=== PATIENT | female | born 1945 | race African-American/Black ===

== ENCOUNTER → 2017-01-30 | Outpatient (CLI) | payer MEDICARE, OTHER ==
[~2017-01-30] MED LIST: ASPI325T PO; CALC0.5C6 PO; CARD4TAB2 PO; CARV25TA PO; CLOP75 PO; D32000TA PO; IMDU30TA PO; LANS15CA PO; LANTUS2P SQ; LASI20TA PO; LOSA50TA PO; NITR0.4S SL; NOVOLOGP2 SQ; POTA-243 PO; PRAV80 PO; VITA100020 SL
[2017-01-30 07:37] LABS: HEMATOCRIT 30.9 % (35.0-46.0); MEAN CELL VOLUME 89.3 FL (80.0-100.0); MEAN CORPUSCULAR HEMOGLOBIN 28.5 PG (27.0-34.0); MEAN CORPUSCULAR HGB CONC 31.9 % (32.0-36.0); PLATELET COUNT 174 TH/MM3 (150-450); RED BLOOD COUNT 3.46 MIL/MM3 (4.00-5.30); RED CELL DISTRIBUTION WIDTH 14.1 % (11.6-17.2); REVIEW FLAG FINAL; WHITE BLOOD COUNT 4.7 TH/MM3 (4.0-11.0)
[2017-01-30 08:11] LABS: ALT (GPT) 12 U/L (10-53); ANION GAP 10 MEQ/L (5-15); AST (GOT) 14 U/L (15-37); BICARBONATE 22.9 MEQ/L (21.0-32.0); BLOOD UREA NITROGEN 38 MG/DL (7-18); CHLORIDE 107 MEQ/L (98-107); GLOMERULAR FILTRATION RATE 23 ML/MIN (>89); GLUCOSE,FASTING 215 MG/DL (74-99); POTASSIUM 4.2 MEQ/L (3.5-5.1); SODIUM (NA) 140 MEQ/L (136-145)
[2017-01-30 08:31] LABS: ALKALINE PHOSPHATASE 49 U/L (45-117); LDL CHOLESTEROL 103 MG/DL (0-99); TOTAL BILIRUBIN ADULT 0.3 MG/DL (0.2-1.0)
[2017-01-30 10:45] LABS: HEMOGLOBIN A1a 1.3 %; HEMOGLOBIN A1b 1.2 %; HEMOGLOBIN Ao 75.9 %; HEMOGLOBIN LA1C 3.1 %; HEMOGLOBIN P3 5.8 %
== END ==
LOC: CLAB 07:05
PROVIDERS: ATTEND Nurse Practitioner Acute Care
DX: I12.9 Hypertensive chronic kidney disease with stage 1 through stage 4 chronic kidney disease, or unspecified chronic kidney disease (principal); N18.4 Chronic kidney disease, stage 4 (severe); R80.1 Persistent proteinuria, unspecified; E11.610 Type 2 diabetes mellitus with diabetic neuropathic arthropathy; E78.4 Other hyperlipidemia
CPT/HCPCS: 36415; 80053; 80061; 82043; 82306; 83036; 83970; 84100; 84443; 85027

== ENCOUNTER 2018-04-16 10:10 | Inpatient (IN) | payer MEDICARE ==
[2018-04-16] VITALS (15 sets, daily range): BP systolic 140–253; BP diastolic 60–115; PULSE 61–82; RESP 14–24; TEMP 98.2–99.3; O2SAT 96–100
[~2018-04-16] VITALS: Ht 167.6 cm; Wt 105.5 kg
--- NOTE | 2018-04-16 11:32 | PD ---
HPI Chief Complaint: Chest Pain Time Seen by Provider: 11:21 Travel History International Travel<30 days: No Contact w/Intl Traveler<30days: No Traveled to known affect area: No History of Present Illness HPI 73-year-old female with history of CAD with stent placement on Plavix and aspirin, A. fib, CKD IV, diabetes, presents emergency department today for evaluation of a headache that began at 4 AM this morning. This was then followed by pain that went from her neck and now is in her chest with associated right upper extremity tingling. She has been mildly nauseous. She has not had any episodes of diaphoresis. She has had mild lightheadedness however. She denies any head injury. She denies any focal deficits or weakness. She denies any recent illnesses, fever, or chills. 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 She has no other symptoms to report. PFSH Past Medical History Hx Anticoagulant Therapy: Yes (ASA, PLAVIX) Arthritis: Yes Autoimmune Disease: No Blood Disorders: No Anxiety: No Depression: Yes Heart Rhythm Problems: Yes (A FIB) Cancer: No Cardiac Catheterization: Yes (X 3) Cardiovascular Problems: Yes (HTN) High Cholesterol: Yes Chemotherapy: No Chest Pain: Yes Congestive Heart Failure: No Cerebrovascular Accident: Yes (TIA) Coronary Artery Disease: Yes Diabetes: Yes Diminished Hearing: No Endocrine: Yes Gastrointestinal Disorders: Yes GERD: Yes Glaucoma: No Genitourinary: Yes (RENAL INSUFFICENCY) Headaches: Yes Hypertension: Yes Immune Disorder: Yes (ARTHRITIS) Musculoskeletal: Yes (L2 L3 BACK BULDGING DISC) Neurologic: Yes (HX OF STROKE 2009) Psychiatric: Yes Reproductive: No Respiratory: Yes Immunizations Current: Yes Radiation Therapy: No Renal Failure: Yes Sickle Cell Disease: No Sleep Apnea: Yes (C PAP AT HOME) Thyroid Disease: Yes ("LUMP ON THYROID") ?: Not Menopausal: Yes Past Surgical History Abdominal Surgery: No AICD: No Arteriovenous Shunt: No Cardiac Surgery: No Coronary Artery Bypass Graft: No Coronary Stent: Yes (ONE STENT) Ear Surgery: No Endocrine Surgery: No Eye Surgery: No Genitourinary Surgery: No Gynecologic Surgery: No Insulin Pump: No Joint Replacement: No Neurologic Surgery: No Oral Surgery: No Pacemaker: No Thoracic Surgery: No Other Surgery: Yes (HEMMRROIDECTOMY 97) Social History Alcohol Use: No Tobacco Use: No Substance Use: No Allergies-Medications (Allergen,Severity, Reaction): Coded Allergies: codeine (Unverified Allergy, Severe, NAUSEA, 04/16/18) penicillin G (Unverified Allergy, Severe, Anaphylaxis, 04/16/18) diatrizoate meglumine (Unverified Adverse Reaction, Severe, KIDNEY IMPAIRMENT, 04/16/18) gadobenic acid (Unverified Adverse Reaction, Severe, KIDNEY IMPAIRMENT, 04/16/18) gadodiamide (Unverified Adverse Reaction, Severe, KIDNEY IMPAIRMENT, ) gadoteridol (Unverified Adverse Reaction, Severe, KIDNEY IMPAIRMENT, ) iodixanol (Unverified Adverse Reaction, Severe, KIDNEY IMPAIRMENT, 04/16/18) iohexol (Unverified Adverse Reaction, Severe, KIDNEY IMPAIRMENT, 04/16/18) Reported Meds & Prescriptions Reported Meds & Active Scripts Active Reported Pravastatin 80 Mg Tab 80 Mg PO DAILY Potassium Chloride ER (Potassium Chloride) 10 Meq Tab 10 Meq PO BID Nitroglycerin SL (Nitroglycerin) 0.4 Mg Subl 0.4 Mg SL DIRECTED PRN ONE TABLET UNDER THE TONGUE NEEDED FOR CHEST PAIN, MAY REPEAT EVERY FIVE MINUTES FOR A TOTAL OF 3 DOSES OR CALL 911 IF NO RELIEF Vitamin B-12 5,000 Mcg Tab Sl (Cyanocobalamin/Cobamamide) 5,000 Mcg-100 Mcg Tab.subl 1,000 Mcg SL DAILY Losartan (Losartan Potassium) 50 Mg Tab 50 Mg PO DAILY Lansoprazole 15 Mg Capdr 15 Mg PO BID Isosorbide Mononitrate 20 Mg Tab 30 Mg PO BID Take 2 doses 7 hours apart. Lantus Inj (Insulin Glargine) 1,000 Unit/10 Ml Vial 30 Units SQ HS Lantus Inj (Insulin Glargine) 1,000 Unit/10 Ml Vial 30 Units SQ HS Novolog Inj (Insulin Aspart) 1,000 Unit/10 Ml Vial 8-10 Units SQ DAILY Max dose at bedtime ( ) units; sugars less than 70,(0) units; sugars 150-199,(2) units; sugars 200-249,(4) units; sugars 250-299,(7) units; sugars 300-349,(10) units; sugars greater than 349,(12)units Lasix (Furosemide) 20 Mg Tab 20 Mg PO DAILY Cardura (Doxazosin Mesylate) 4 Mg Tab 4 Mg PO HS Plavix (Clopidogrel Bisulfate) 75 Mg Tab 75 Mg PO DAILY Carvedilol 25 Mg Tab 25 Mg PO BID Calcitriol 0.5 Mcg Cap 0.5 Mcg PO DAILY Aspirin 325 Mg Tab 325 Mg PO DAILY Tizanidine (Tizanidine HCl) 4 Mg Tab 4 Mg PO TID PRN Review of Systems Except as stated in HPI: all other systems reviewed are Neg Physical Exam Narrative GENERAL: Well-nourished female patient, in no acute distress. SKIN: Focused skin assessment warm/dry. HEAD: Atraumatic. Normocephalic. EYES: Pupils equal and round and reactive. No scleral icterus. No injection or drainage. ENT: No nasal bleeding or discharge. Mucous membranes pink and moist. NECK: Trachea midline. No JVD. CARDIOVASCULAR: Regular rate. RESPIRATORY: No accessory muscle use. Diminished bases, otherwise clear to auscultation. Breath sounds equal bilaterally. GASTROINTESTINAL: Abdomen soft, non-tender, nondistended. Hepatic and splenic margins not palpable. MUSCULOSKELETAL: No obvious deformities. No clubbing. No cyanosis. 2+ bilateral lower extremity edema. NEUROLOGICAL: Awake and alert. No obvious cranial nerve deficits. Motor grossly within normal limits. Normal speech. PSYCHIATRIC: Appropriate mood and affect; insight and judgment normal. Data Data Last Documented VS Vital Signs Date Time Temp Pulse Resp B/P (MAP) Pulse Ox O2 Delivery O2 Flow Rate FiO2 04/16/18 14:46 80 18 169/81 (110) 100 Room Air 04/16/18 10:55 99.3 Orders Orders Complete Blood Count With Diff (04/16/18 10:58) Basic Metabolic Panel (Bmp) (04/16/18 11:01) Ckmb (Isoenzyme) Profile (04/16/18 11:01) Troponin I (04/16/18 11:01) Electrocardiogram (04/16/18 11:31) Basic Metabolic Panel (Bmp) (04/16/18 11:31) B-Type Natriuretic Peptide (04/16/18 11:31) Ckmb (Isoenzyme) Profile (04/16/18 11:31) Magnesium (Mg) (04/16/18 11:31) Prothrombin Time / Inr (Pt) (04/16/18 11:31) Act Partial Throm Time (Ptt) (04/16/18 11:31) Troponin I (04/16/18 11:31) Ecg Monitoring (04/16/18 11:31) Bilateral Bp Monitoring (04/16/18 11:31) Iv Access Insert/Monitor (04/16/18 11:31) Oximetry (04/16/18 11:31) Oxygen Administration (04/16/18 11:31) Sodium Chloride 0.9% Flush (Ns Flush) (04/16/18 11:45) Nitroglycerin Sl (Nitrostat Sl) (04/16/18 11:45) Chest, Pa & Lat (04/16/18 11:31) Ct Brain W/O Iv Contrast(Rout) (04/16/18 ) CKMB (04/16/18 11:22) CKMB% (04/16/18 11:22) Prochlorperazine Inj (Compazine Inj) (04/16/18 12:15) Diphenhydramine Inj (Benadryl Inj) (04/16/18 12:15) Acetaminophen 1000 Mg/100 Ml (Ofirmev 10 (04/16/18 12:15) Clonidine (Catapres) (04/16/18 13:15) Ct Thorax/ Chest Wo Iv Contras (04/16/18 ) Nicardipine Inj (Cardene Inj) (04/16/18 14:00) Labs Laboratory Tests Test 04/16/18 11:22 04/16/18 11:30 White Blood Count 6.9 TH/MM3 Red Blood Count 3.76 MIL/MM3 Hemoglobin 10.7 GM/DL Hematocrit 32.8 % Mean Corpuscular Volume 87.1 FL Mean Corpuscular Hemoglobin 28.4 PG Mean Corpuscular Hemoglobin Concent 32.6 % Red Cell Distribution Width 14.1 % Platelet Count 199 TH/MM3 Mean Platelet Volume 8.6 FL Neutrophils (%) (Auto) 74.8 % Lymphocytes (%) (Auto) 17.8 % Monocytes (%) (Auto) 5.0 % Eosinophils (%) (Auto) 1.2 % Basophils (%) (Auto) 1.2 % Neutrophils # (Auto) 5.2 TH/MM3 Lymphocytes # (Auto) 1.2 TH/MM3 Monocytes # (Auto) 0.3 TH/MM3 Eosinophils # (Auto) 0.1 TH/MM3 Basophils # (Auto) 0.1 TH/MM3 CBC Comment DIFF FINAL Differential Comment Blood Urea Nitrogen 49 MG/DL Creatinine 2.94 MG/DL Random Glucose 204 MG/DL Calcium Level 9.6 MG/DL Sodium Level 141 MEQ/L Potassium Level 3.8 MEQ/L Chloride Level 108 MEQ/L Carbon Dioxide Level 22.3 MEQ/L Anion Gap 11 MEQ/L Estimat Glomerular Filtration Rate 19 ML/MIN Total Creatine Kinase 231 U/L Creatine Kinase MB 1.1 NG/ML Creatine Kinase MB % 0.5 % Troponin I 0.02 NG/ML Prothrombin Time 10.6 SEC Prothromb Time International Ratio 1.0 RATIO Activated Partial Thromboplast Time 23.8 SEC MDM Medical Decision Making Medical Screen Exam Complete: Yes Emergency Medical Condition: Yes Medical Record Reviewed: Yes Differential Diagnosis Migraine headache versus hypertension versus ACS versus electrolyte abnormality Narrative Course 73-year-old female with CAD presents emergency department for evaluation of headache and associated chest pain. Patient appears without distress. However she is quite hypertensive. She is continuing to have chest pain. Patient was given sublingual nitroglycerin and clonidine p.o. I discussed the patient my attending physician is also assessed the patient. patient is also treated for migraine headache. Laboratory Tests Test 04/16/18 11:22 04/16/18 11:30 White Blood Count 6.9 TH/MM3 Red Blood Count 3.76 MIL/MM3 Hemoglobin 10.7 GM/DL Hematocrit 32.8 % Mean Corpuscular Volume 87.1 FL Mean Corpuscular Hemoglobin 28.4 PG Mean Corpuscular Hemoglobin Concent 32.6 % Red Cell Distribution Width 14.1 % Platelet Count 199 TH/MM3 Mean Platelet Volume 8.6 FL Neutrophils (%) (Auto) 74.8 % Lymphocytes (%) (Auto) 17.8 % Monocytes (%) (Auto) 5.0 % Eosinophils (%) (Auto) 1.2 % Basophils (%) (Auto) 1.2 % Neutrophils # (Auto) 5.2 TH/MM3 Lymphocytes # (Auto) 1.2 TH/MM3 Monocytes # (Auto) 0.3 TH/MM3 Eosinophils # (Auto) 0.1 TH/MM3 Basophils # (Auto) 0.1 TH/MM3 CBC Comment DIFF FINAL Differential Comment Blood Urea Nitrogen 49 MG/DL Creatinine 2.94 MG/DL Random Glucose 204 MG/DL Calcium Level 9.6 MG/DL Sodium Level 141 MEQ/L Potassium Level 3.8 MEQ/L Chloride Level 108 MEQ/L Carbon Dioxide Level 22.3 MEQ/L Anion Gap 11 MEQ/L Estimat Glomerular Filtration Rate 19 ML/MIN Total Creatine Kinase 231 U/L Creatine Kinase MB 1.1 NG/ML Creatine Kinase MB % 0.5 % Troponin I 0.02 NG/ML Prothrombin Time 10.6 SEC Prothromb Time International Ratio 1.0 RATIO Activated Partial Thromboplast Time 23.8 SEC Last Impressions Chest X-Ray 04/16/18 1131 Signed Impressions: CONCLUSION: 1. Stable enlargement of the cardiac silhouette. No acute pulmonary abnormalit y is seen. 2. Lobulated masslike densities overlying the hilar region on the lateral proj ection. Differential diagnostic considerations include hilar mass, lymphadenopa thy, or enlarged pulmonary arteries. Suggest chest CT with IV contrast for furt her evaluation. Head CT 04/16/18 0000 Signed Impressions: CONCLUSION: 1. Stable noncontrast head CT. No acute intracranial abnormality is identified . 2. Chronic findings include mild generalized atrophy and chronic white matter changes characteristic of chronic microvascular ischemia. Chest CT 04/16/18 0000 Signed Impressions: CONCLUSION: 1. Mild dependent atelectatic changes. 2. Atherosclerotic calcification of the coronary arteries. 3. Small hiatal hernia. Upon reassessment, patient's headache has decreased and is now a 2-3 out of 10. Her blood pressure is also reduced on the Cardene drip. I have reviewed the findings and discussed them with the patient as well as my attending physician. Patient will be admitted to the CICU. Dr. mcintosh will accept the patient for admission. Diagnosis Primary Impression: Hypertensive urgency Additional Impression: Chest pain, atypical Admitting Information Admitting Physician Requests: Admit Condition: Stable Rosa Mora CARLENE Apr 16, 2018 11:32
[2018-04-16] MEDS ORDERED: TIZA4TAB PO (11:36)
[2018-04-16 11:37] LABS: AUTOMATED NEUTROPHIL # 5.2 TH/MM3 (1.8-7.7); BASOPHIL # 0.1 TH/MM3 (0-0.2); BASOPHIL % 1.2 % (0.0-2.0); EOSINOPHIL # 0.1 TH/MM3 (0-0.4); EOSINOPHIL % 1.2 % (0.0-4.0); HEMATOCRIT 32.8 % (35.0-46.0); HEMOGLOBIN 10.7 GM/DL (11.6-15.3); LYMPH % 17.8 % (9.0-44.0); LYMPHOCYTE # 1.2 TH/MM3 (1.0-4.8); MEAN CELL VOLUME 87.1 FL (80.0-100.0); MEAN CORPUSCULAR HEMOGLOBIN 28.4 PG (27.0-34.0); MEAN CORPUSCULAR HGB CONC 32.6 % (32.0-36.0); MEAN PLATELET VOLUME 8.6 FL (7.0-11.0); MONOCYTE # 0.3 TH/MM3 (0-0.9); NEUT % 74.8 % (16.0-70.0); PLATELET COUNT 199 TH/MM3 (150-450); RED BLOOD COUNT 3.76 MIL/MM3 (4.00-5.30); RED CELL DISTRIBUTION WIDTH 14.1 % (11.6-17.2); WHITE BLOOD COUNT 6.9 TH/MM3 (4.0-11.0)
[2018-04-16] MEDS: NITROGLYCERIN 0.4 MG SL 25 TABS/BTL SL SCH ×3 (11:41→12:04)
[2018-04-16] MEDS ORDERED: SODIUM CHLORIDE 0.9% FLUSH 10 ML FLUSH IVF PRN (11:45)
[2018-04-16] MEDS ORDERED: LANTUS2P SQ ×2 (12:02)
[2018-04-16] MEDS ORDERED: PLAV75TA29 PO (12:02)
[2018-04-16] MEDS ORDERED: CARD4TAB2 PO (12:02)
[2018-04-16] MEDS ORDERED: POTA10TA2 PO (12:02)
[2018-04-16] MEDS ORDERED: ISOS20TA PO (12:02)
[2018-04-16] MEDS ORDERED: NOVOLOGP2 SQ (12:02)
[2018-04-16] MEDS ORDERED: CARV25TA PO (12:02)
[2018-04-16] MEDS ORDERED: CALC0.5C PO (12:02)
[2018-04-16] MEDS ORDERED: NITR1SUB3 SL (12:02)
[2018-04-16] MEDS ORDERED: LOSA50TA PO (12:02)
[2018-04-16] MEDS ORDERED: CYAN1TAB27 SL (12:02)
[2018-04-16] MEDS ORDERED: LANS15CA PO (12:02)
[2018-04-16] MEDS ORDERED: PRAV80TA2 PO (12:02)
[2018-04-16] MEDS ORDERED: FURO1TAB62 PO (12:02)
[2018-04-16] MEDS ORDERED: ASPI-183 PO (12:02)
[2018-04-16 12:03] LABS: BICARBONATE 22.3 MEQ/L (21.0-32.0); CALCIUM 9.6 MG/DL (8.5-10.1); CREATININE 2.94 MG/DL (0.50-1.00)
[2018-04-16 12:07] LABS: TROPONIN I 0.02 NG/ML (0.02-0.05)
[2018-04-16] MEDS ORDERED: ACETAMINOPHEN 1000 MG/100 ML 65 ML IV ONE (12:15)
[2018-04-16] MEDS ORDERED: PROCHLORPERAZINE INJ 10 MG/2 ML VIAL IV PUSH ONE (12:15)
[2018-04-16] MEDS ORDERED: diphenhydrAMINE HCL 50 MG/ML VIAL IV PUSH ONE (12:15)
[2018-04-16 12:38] LABS: PROTHROMBIN TIME - PATIENT 10.6 SEC (9.8-11.6)
[2018-04-16] MEDS ORDERED: cloNIDine HCL 0.2 MG TAB PO ONE (13:15)
--- NOTE | 2018-04-16 13:29 | PD ---
Physical Exam Narrative I, Dr. Garcia, have reviewed the advance practice practitioner's documentation and am in agreement, met with the patient face to face, made the diagnosis, and the medical decision making was done by me. *My assessment and Findings: Patient is a 73 year old female who comes in complaining of severe headache. She says she has had headaches like this in the past when her blood pressure is not controlled. She says it started on the right side and then went across to the other and now encompasses her entire head. She reports some nausea and vomiting. She denies fever or chills. Exam shows no neurologic abnormalities. Data Data Last Documented VS Vital Signs Date Time Temp Pulse Resp B/P (MAP) Pulse Ox O2 Delivery O2 Flow Rate FiO2 04/16/18 14:46 80 18 169/81 (110) 100 Room Air 04/16/18 10:55 99.3 Orders Orders Complete Blood Count With Diff (04/16/18 10:58) Basic Metabolic Panel (Bmp) (04/16/18 11:01) Ckmb (Isoenzyme) Profile (04/16/18 11:01) Troponin I (04/16/18 11:01) Electrocardiogram (04/16/18 11:31) B-Type Natriuretic Peptide (04/16/18 11:31) Prothrombin Time / Inr (Pt) (04/16/18 11:31) Act Partial Throm Time (Ptt) (04/16/18 11:31) Ecg Monitoring (04/16/18 11:31) Bilateral Bp Monitoring (04/16/18 11:31) Iv Access Insert/Monitor (04/16/18 11:31) Oximetry (04/16/18 11:31) Oxygen Administration (04/16/18 11:31) Sodium Chloride 0.9% Flush (Ns Flush) (04/16/18 11:45) Nitroglycerin Sl (Nitrostat Sl) (04/16/18 11:45) Chest, Pa & Lat (04/16/18 11:31) Ct Brain W/O Iv Contrast(Rout) (04/16/18 ) CKMB (04/16/18 11:22) CKMB% (04/16/18 11:22) Prochlorperazine Inj (Compazine Inj) (04/16/18 12:15) Diphenhydramine Inj (Benadryl Inj) (04/16/18 12:15) Acetaminophen 1000 Mg/100 Ml (Ofirmev 10 (04/16/18 12:15) Clonidine (Catapres) (04/16/18 13:15) Ct Thorax/ Chest Wo Iv Contras (04/16/18 ) Nicardipine Inj (Cardene Inj) (04/16/18 14:00) Admit Order (Ed Use Only) (04/16/18 16:41) Labs Laboratory Tests Test 04/16/18 11:22 04/16/18 11:30 White Blood Count 6.9 TH/MM3 Red Blood Count 3.76 MIL/MM3 Hemoglobin 10.7 GM/DL Hematocrit 32.8 % Mean Corpuscular Volume 87.1 FL Mean Corpuscular Hemoglobin 28.4 PG Mean Corpuscular Hemoglobin Concent 32.6 % Red Cell Distribution Width 14.1 % Platelet Count 199 TH/MM3 Mean Platelet Volume 8.6 FL Neutrophils (%) (Auto) 74.8 % Lymphocytes (%) (Auto) 17.8 % Monocytes (%) (Auto) 5.0 % Eosinophils (%) (Auto) 1.2 % Basophils (%) (Auto) 1.2 % Neutrophils # (Auto) 5.2 TH/MM3 Lymphocytes # (Auto) 1.2 TH/MM3 Monocytes # (Auto) 0.3 TH/MM3 Eosinophils # (Auto) 0.1 TH/MM3 Basophils # (Auto) 0.1 TH/MM3 CBC Comment DIFF FINAL Differential Comment Blood Urea Nitrogen 49 MG/DL Creatinine 2.94 MG/DL Random Glucose 204 MG/DL Calcium Level 9.6 MG/DL Sodium Level 141 MEQ/L Potassium Level 3.8 MEQ/L Chloride Level 108 MEQ/L Carbon Dioxide Level 22.3 MEQ/L Anion Gap 11 MEQ/L Estimat Glomerular Filtration Rate 19 ML/MIN Total Creatine Kinase 231 U/L Creatine Kinase MB 1.1 NG/ML Creatine Kinase MB % 0.5 % Troponin I 0.02 NG/ML B-Type Natriuretic Peptide 348 PG/ML Prothrombin Time 10.6 SEC Prothromb Time International Ratio 1.0 RATIO Activated Partial Thromboplast Time 23.8 SEC [facility] Supervised Visit with GISELLE: Yes Narrative Course Patient is a 73-year-old female who comes in complaining of severe headache. Exam shows no acute neurologic abnormalities. IV established, labs sent. Labs show no acute abnormalities. Patient's blood pressure severely elevated despite taking all of her medications. She was given clonidine without improvement. Started on a Cardene drip. She was admitted for further management. Admitting Information Admitting Physician Requests: Admit Scripts Amlodipine (Norvasc) 5 Mg Tab 5 MG PO DAILY for Blood Pressure Management, #30 TAB Prov: Carole Sheffield DO 04/17/18 Carvedilol (Carvedilol) 25 Mg Tab 12.5 MG PO BID for Blood Pressure Management, #60 TAB 0 Refills Hold if heart rate < 65 or systolic BP < 115 Prov: Carole Sheffield DO 04/17/18 Janeth Garcia MD Apr 16, 2018 13:29
--- NOTE | 2018-04-16 13:33 | RADRPT ---
EXAM DATE: 04/16/2018 1:20 PM EDT AGE/SEX: 73 years / Female INDICATIONS: Chest pain. Patient complains of headache, nausea, vomiting, and tightness in her chest . CLINICAL DATA: This is the patient's initial encounter. Patient reports that signs and symptoms have been present for 1 day and indicates a pain score of 0/10. MEDICAL/SURGICAL HISTORY: None. None. [place] [facility] [place] . FINDINGS: Frontal and lateral views of the chest demonstrate mildly enlarged cardiac silhouette. There are lobu lated densities overlying the hilar region on the lateral projection. No pleural effusion, airspace c onsolidation, or pneumothorax is identified. There is mild atelectasis at the lung bases. The bones a nd soft tissues demonstrate no acute finding. There are degenerative changes of the thoracic spine an d there is osteoarthritis of the left glenohumeral joint. CONCLUSION: 1. Stable enlargement of the cardiac silhouette. No acute pulmonary abnormality is seen. 2. Lobulated masslike densities overlying the hilar region on the lateral projection. Differential d iagnostic considerations include hilar mass, lymphadenopathy, or enlarged pulmonary arteries. Suggest chest CT with IV contrast for further evaluation. Electronically signed by: Lyle Harvey MD 04/16/2018 1:31 PM EDT
--- NOTE | 2018-04-16 13:43 | RADRPT ---
EXAM DATE: 04/16/2018 1:34 PM EDT AGE/SEX: 73 years / Female INDICATIONS: Right sided pain, tingling in left hand. CLINICAL DATA: This is the patient's initial encounter. Patient reports that signs and symptoms have been present for 1 day and indicates a pain score of 8/10. MEDICAL/SURGICAL HISTORY: Cerebrovascular disease. Cardiovascular disease. Hypertension. Diabete s, renal failure None. RADIATION DOSE: 35.24 CTDI (mGy) COMPAR[place]: [facility] [place]/03/2015. . TECHNIQUE: CT of the head without contrast. Using automated exposure control and adjustment of the mA and/or kV according to patient size, radiation dose was kept as low as reasonably achievable to ob tain optimal diagnostic quality images. FINDINGS: Cerebrum: There is mild generalized atrophy and ventricles are normal given the degree of atrophy. M ild periventricular white matter change is present. No midline shift, mass lesion, hemorrhage or acu te infarction. No extraaxial fluid collections are seen. Posterior Fossa: The cerebellum and brainstem demonstrate no acute abnormality. The 4th ventricle is midline. The cerebellopontine angle is within normal limits. Extracranial: The visualized sinuses are clear. Skull: The calvaria is intact. No skull fracture. CONCLUSION: 1. Stable noncontrast head CT. No acute intracranial abnormality is identified. 2. Chronic findings include mild generalized atrophy and chronic white matter changes characteristic of chronic microvascular ischemia. Electronically signed by: Lyle Harvey MD 04/16/2018 1:42 PM EDT
[2018-04-16] MEDS ORDERED: niCARdipine INJ 25 MG in SODIUM CHLOR 0.9% 250 ML INJ 250 ML IV PRN (14:00)
--- NOTE | 2018-04-16 16:18 | RADRPT ---
EXAM DATE: 04/16/2018 3:34 PM EDT AGE/SEX: 73 years / Female INDICATIONS: Chest pain, mass. CLINICAL DATA: This is the patient's initial encounter. Patient reports that signs and symptoms have been present for 1 day and indicates a pain score of 3/10. MEDICAL/SURGICAL HISTORY: Cerebrovascular disease. Cardiovascular disease. Hypertension. Renal f ailure, diabetes. None. RADIATION DOSE: 11.66 CTDI (mGy) COMPARISON: No prior [place] exams available for comparison. TECHNIQUE: Multiple contiguous axial images were obtained through the chest without contrast. Image s were obtained in suspended respiration using multiple row detector helical technique. Using automa benito exposure control and adjustment of the mA and/or kV according to patient size, radiation dose was kept as low as reasonably achievable to obtain optimal diagnostic quality images. FINDINGS: Lungs: The lungs are symmetrically aerated. Mild, dependent atelectatic changes posteriorly. Linear atelectatic changes above the left hemidiaphragm.. No infiltrates or nodular densities are seen. Mediastinum: There is good visualization of the great vessels of the middle mediastinum. No evidenc e of mediastinal or hilar adenopathy/mass. Atherosclerotic calcification of the coronary arteries. Sm all hiatal hernia. Pleurae: No evidence of focal thickening or pleural effusion. Axillae: Unremarkable. Bony Structures: Unremarkable. Miscellaneous: The examination was extended to include the upper abdomen, and both adrenal glands ar e normal in size and configuration. CONCLUSION: 1. Mild dependent atelectatic changes. 2. Atherosclerotic calcification of the coronary arteries. 3. Small hiatal hernia. Electronically signed by: Nimesh Patton MD 04/16/2018 4:17 PM EDT
[2018-04-16] MEDS ORDERED: GLUCAGON 1 MG/ML VIAL OTHER PRN (16:45)
[2018-04-16] MEDS ORDERED: SODIUM CHLORIDE 0.9% FLUSH 10 ML FLUSH IV FLUSH PRN (16:45)
[2018-04-16] MEDS ORDERED: DEXTROSE 50% IN WATER 50 ML VIAL(D50) IV PUSH PRN (16:45)
[2018-04-16] MEDS ORDERED: METOCLOPRAMIDE HCL 10 MG/2 ML VIAL IV PUSH PRN (16:45)
[2018-04-16] MEDS ORDERED: ACETAMINOPHEN 325 MG TAB PO PRN ×2 (16:45)
[2018-04-16] MEDS ORDERED: NALOXONE HCL 0.4 MG/ML AMP IV PUSH PRN (16:45)
[2018-04-16] MEDS ORDERED: MAGNESIUM HYDROXIDE SUSP 30 ML CUP PO PRN (16:45)
--- NOTE | 2018-04-16 16:48 | HHI.HP ---
[facility] Denise Rizvi MD Admission Diagnosis hypertensive urgency; headache; atypical chest pain Diagnoses: (1) Hypertensive urgency (2) Chronic renal disease, stage 4, severely decreased glomerular filtration rate (GFR) between 15-29 mL/min/1.73 square meter Chief Complaint: Headache Travel History International Travel<30 Days: No Contact w/Intl Traveler <30 Da: No Traveled to Known Affected Are: No History of Present Illness 73-year-old female with a past medical history of diabetes type 2, CAD, A. fib presented to the ED for evaluation of an acute onset of headache which started at 4 AM this morning described as pounding followed by neck pain then chest pain with associated tingling to her right upper extremity. Patient also reported associated some visual impairment associated with mild lightheadedness. Patient did complain of nausea without any emesis. Per patient's daughter, yesterday patient has had few drinks as well as salty food to celebrate her birthday which is today. She denies any GI symptoms. During my exam patient reported improvement of headaches and denies any chest pain or neck pain. In the ED, patient was started on Cardene drip with improvement of her BP. Review of Systems Except as stated in HPI: all other systems reviewed are Neg Past Family Social History Past Medical History Hypertension Diabetes Hypercholesterolemia Chronic renal insufficiency Peripheral neuropathy History of CVA Diverticulosis CAD Past Surgical History 1. Hemorrhoidectomy 194. 2. Cardiac catheterization x 3 in the past, Dr. Jacobson. Reported Medications Pravastatin 80 Mg Tab 80 Mg PO DAILY Potassium Chloride ER (Potassium Chloride) 10 Meq Tab 10 Meq PO BID Nitroglycerin SL (Nitroglycerin) 0.4 Mg Subl 0.4 Mg SL DIRECTED PRN ONE TABLET UNDER THE TONGUE NEEDED FOR CHEST PAIN, MAY REPEAT EVERY FIVE MINUTES FOR A TOTAL OF 3 DOSES OR CALL 911 IF NO RELIEF Vitamin B-12 5,000 Mcg Tab Sl (Cyanocobalamin/Cobamamide) 5,000 Mcg-100 Mcg Tab.subl 1,000 Mcg SL DAILY Losartan (Losartan Potassium) 50 Mg Tab 50 Mg PO DAILY Lansoprazole 15 Mg Capdr 15 Mg PO BID Isosorbide Mononitrate 20 Mg Tab 30 Mg PO BID Take 2 doses 7 hours apart. Lantus Inj (Insulin Glargine) 1,000 Unit/10 Ml Vial 30 Units SQ HS Lantus Inj (Insulin Glargine) 1,000 Unit/10 Ml Vial 30 Units SQ HS Novolog Inj (Insulin Aspart) 1,000 Unit/10 Ml Vial 8-10 Units SQ DAILY Max dose at bedtime ( ) units; sugars less than 70,(0) units; sugars 150-199,(2) units; sugars 200-249,(4) units; sugars 250-299,(7) units; sugars 300-349,(10) units; sugars greater than 349,(12)units Lasix (Furosemide) 20 Mg Tab 20 Mg PO DAILY Cardura (Doxazosin Mesylate) 4 Mg Tab 4 Mg PO HS Plavix (Clopidogrel Bisulfate) 75 Mg Tab 75 Mg PO DAILY Carvedilol 25 Mg Tab 25 Mg PO BID Calcitriol 0.5 Mcg Cap 0.5 Mcg PO DAILY Aspirin 325 Mg Tab 325 Mg PO DAILY Tizanidine (Tizanidine HCl) 4 Mg Tab 4 Mg PO TID PRN Allergies: Coded Allergies: codeine (Unverified Allergy, Severe, NAUSEA, 04/16/18) penicillin G (Unverified Allergy, Severe, Anaphylaxis, 04/16/18) diatrizoate meglumine (Unverified Adverse Reaction, Severe, KIDNEY IMPAIRMENT, 04/16/18) gadobenic acid (Unverified Adverse Reaction, Severe, KIDNEY IMPAIRMENT, 04/16/18) gadodiamide (Unverified Adverse Reaction, Severe, KIDNEY IMPAIRMENT, ) gadoteridol (Unverified Adverse Reaction, Severe, KIDNEY IMPAIRMENT, ) iodixanol (Unverified Adverse Reaction, Severe, KIDNEY IMPAIRMENT, 04/16/18) iohexol (Unverified Adverse Reaction, Severe, KIDNEY IMPAIRMENT, 04/16/18) Family History Mother age 56 from colon cancer. Father at age 64 from cerebrovascular accident. Six siblings: One from cancer, Four children alive and in good health. Social History Alcohol Use: No Tobacco Use: No Substance Use: No Physical Exam Vital Signs Vital Signs Date Time Temp Pulse Resp B/P (MAP) Pulse Ox O2 Delivery O2 Flow Rate FiO2 04/16/18 14:46 80 18 169/81 (110) 100 Room Air 04/16/18 14:35 82 18 186/83 (117) 100 Room Air 04/16/18 14:29 79 218/101 04/16/18 13:56 78 18 237/108 (151) 98 Room Air 04/16/18 13:13 75 17 229/101 (143) 99 Room Air 04/16/18 12:05 79 16 214/88 (130) 99 Room Air 04/16/18 11:45 203/91 (128) 200/93 (128) 04/16/18 10:55 99.3 82 20 253/115 (161) 98 Physical Exam GENERAL: This is a well-nourished, well-developed patient, in no apparent distress. SKIN: No rashes, ecchymoses or lesions. Cool and dry. HEAD: Atraumatic. Normocephalic. No temporal or scalp tenderness. EYES: Pupils equal round and reactive. Extraocular motions intact. No scleral icterus. No injection or drainage. ENT: Nose without bleeding, purulent drainage or septal hematoma. Throat without erythema, tonsillar hypertrophy or exudate. Uvula midline. Airway patent. NECK: Trachea midline. No JVD or lymphadenopathy. Supple, nontender, no meningeal signs. CARDIOVASCULAR: Regular rate and rhythm without murmurs, gallops, or rubs. RESPIRATORY: Clear to auscultation. Breath sounds equal bilaterally. No wheezes , rales, or rhonchi. GASTROINTESTINAL: Abdomen soft, non-tender, nondistended. No hepato-splenomegaly , or palpable masses. No guarding. MUSCULOSKELETAL: Extremities without clubbing, cyanosis, or edema. No joint tenderness, effusion, or edema noted. No calf tenderness. Negative Homans sign bilaterally. NEUROLOGICAL: Awake and alert. Cranial nerves II through XII intact. Motor and sensory grossly within normal limits. Five out of 5 muscle strength in all muscle groups. Normal speech. Laboratory Laboratory Tests Test 04/16/18 11:22 04/16/18 11:30 White Blood Count 6.9 Red Blood Count 3.76 Hemoglobin 10.7 Hematocrit 32.8 Mean Corpuscular Volume 87.1 Mean Corpuscular Hemoglobin 28.4 Mean Corpuscular Hemoglobin Concent 32.6 Red Cell Distribution Width 14.1 Platelet Count 199 Mean Platelet Volume 8.6 Neutrophils (%) (Auto) 74.8 Lymphocytes (%) (Auto) 17.8 Monocytes (%) (Auto) 5.0 Eosinophils (%) (Auto) 1.2 Basophils (%) (Auto) 1.2 Neutrophils # (Auto) 5.2 Lymphocytes # (Auto) 1.2 Monocytes # (Auto) 0.3 Eosinophils # (Auto) 0.1 Basophils # (Auto) 0.1 CBC Comment DIFF FINAL Differential Comment Blood Urea Nitrogen 49 Creatinine 2.94 Random Glucose 204 Calcium Level 9.6 Sodium Level 141 Potassium Level 3.8 Chloride Level 108 Carbon Dioxide Level 22.3 Anion Gap 11 Estimat Glomerular Filtration Rate 19 Total Creatine Kinase 231 Creatine Kinase MB 1.1 Creatine Kinase MB % 0.5 Troponin I 0.02 Prothrombin Time 10.6 Prothromb Time International Ratio 1.0 Activated Partial Thromboplast Time 23.8 Result Diagram: 04/16/18 1122 04/16/18 1122 Imaging Last Impressions Chest X-Ray 04/16/18 1131 Signed Impressions: CONCLUSION: 1. Stable enlargement of the cardiac silhouette. No acute pulmonary abnormalit y is seen. 2. Lobulated masslike densities overlying the hilar region on the lateral proj ection. Differential diagnostic considerations include hilar mass, lymphadenopa thy, or enlarged pulmonary arteries. Suggest chest CT with IV contrast for furt her evaluation. Head CT 04/16/18 0000 Signed Impressions: CONCLUSION: 1. Stable noncontrast head CT. No acute intracranial abnormality is identified . 2. Chronic findings include mild generalized atrophy and chronic white matter changes characteristic of chronic microvascular ischemia. Chest CT 04/16/18 0000 Signed Impressions: CONCLUSION: 1. Mild dependent atelectatic changes. 2. Atherosclerotic calcification of the coronary arteries. 3. Small hiatal hernia. Septic Shock Reassessment Septic shock perfusion: reassessment completed Caprini VTE Risk Assessment Caprini VTE Risk Assessment: Mod/High Risk (score >= 2) Caprini Risk Assessment Model Point Value = 1 Point Value = 2 Point Value = 3 Point Value = 5 Age 41-60 Minor surgery BMI > 25 kg/m2 Swollen legs Varicose veins or History of unexplained or recurrent spontaneous Oral contraceptives or hormone replacement Sepsis (< 1 month) Serious lung disease, including pneumonia (< 1 month) Abnormal pulmonary function Acute myocardial infarction Congestive heart failure (< 1 month) History of inflammatory bowel disease Medical patient at bed rest Age 61-74 Arthroscopic surgery Major open surgery (> 45 min) Laparoscopic surgery (> 45 min) Malignancy Confined to bed (> 72 hours) Immobilizing plaster cast Central venous access Age >= 75 History of VTE Family history of VTE Factor V Leiden Prothrombin 31180L Lupus anticoagulant Anticardiolipin antibodies Elevated serum homocysteine Heparin-induced thrombocytopenia Other congenital or acquired thrombophilia Stroke (< 1 month) Elective arthroplasty Hip, pelvis, or leg fracture Acute spinal cord injury (< 1 month) Prophylaxis Regimen Total Risk Factor Score Risk Level Prophylaxis Regimen 0-1 Low Early ambulation 2 Moderate Order ONE of the following: *Sequential Compression Device (SCD) *Heparin 5000 units SQ BID 3-4 Higher Order ONE of the following medications: *Heparin 5000 units SQ TID *Enoxaparin/Lovenox 40 mg SQ daily (WT < 150 kg, CrCl > 30 mL/min) *Enoxaparin/Lovenox 30 mg SQ daily (WT < 150 kg, CrCl > 10-29 mL/min) *Enoxaparin/Lovenox 30 mg SQ BID (WT < 150 kg, CrCl > 30 mL/min) AND/OR *Sequential Compression Device (SCD) 5 or more Highest Order ONE of the following medications: *Heparin 5000 units SQ TID (Preferred with Epidurals) *Enoxaparin/Lovenox 40 mg SQ daily (WT < 150 kg, CrCl > 30 mL/min) *Enoxaparin/Lovenox 30 mg SQ daily (WT < 150 kg, CrCl > 10-29 mL/min) *Enoxaparin/Lovenox 30 mg SQ BID (WT < 150 kg, CrCl > 30 mL/min) AND *Sequential Compression Device (SCD) Assessment and Plan Problem List: (1) Hypertensive urgency ICD Code: I10 - Hypertensive urgency Status: Acute Assessment and Plan 73-year-old female with Hypertensive urgency Chest x-ray noted and reviewed by me with finding of masslike density in the hilar region CT chest noted and reviewed by me with stable finding Patient was started on Cardene drip with improvement of BP, which at this point I will discontinued Cardiac enzyme initial unremarkable Resume patient oral antihypertensive medications Headache Secondary to above Head CT noted and reviewed by me without any intracranial abnormality History of diabetes type 2, atrial fibrillation and other chronic medical conditions Start patient on sliding scale insulin and resume outpatient medications Chronic kidney disease stage IV Patient is currently her baseline Monitor BUN and creatinine Code Status Full code Discussed Condition With ED OPERATIONS TECHNICIAN, patient, daughter Physician Certification 2 Midnight Certification Type: Admission for Inpatient Services Order for Inpatient Services The services are ordered in accordance with Medicare regulations or non- Medicare payer requirements, as applicable. In the case of services not specified as inpatient-only, they are appropriately provided as inpatient services in accordance with the 2-midnight benchmark. Estimated LOS (days): 2 days is the estimated time the patient will need to remain in the hospital, assuming treatment plan goals are met and no additional complications. Post-Hospital Plan: Not yet determined Higinio Ho MD Apr 16, 2018 16:48
[2018-04-16] MEDS ORDERED: RESP: ALBUTEROL 2.5 MG/IPRATROPIUM 0.5 MG NEB (PRN) NEB (17:45)
[2018-04-16] MEDS: INSULIN ASPART SUPPLEMENTAL SCALE SQ SCH ×2 (18:30→21:00)
[2018-04-16] MEDS: ISOSORBIDE MONONITRATE 30 MG CR TAB (IMDUR) PO SCH (19:10)
[2018-04-16] MEDS: PANTOPRAZOLE SOD 20 MG DELAYED RELEASE TAB PO SCH (19:10)
[2018-04-16] MEDS ORDERED: INSULIN DETEMIR 100 UNITS/ML VIAL SQ SCH (21:00)
[2018-04-16] MEDS ORDERED: CARVEDILOL 12.5 MG TAB PO SCH (21:00)
[2018-04-16] MEDS: POTASSIUM CHLORIDE 10 MEQ CONTROLLED RELEASE TAB PO SCH (21:58)
[2018-04-16] MEDS: SODIUM CHLORIDE 0.9% FLUSH 10 ML FLUSH IV FLUSH SCH (21:59)
[2018-04-17] VITALS (18 sets, daily range): BP systolic 150–180; BP diastolic 70–87; PULSE 46–60; RESP 16–20; TEMP 98–98.5; O2SAT 97–99
[2018-04-17] MEDS: cloNIDine HCL 0.1 MG TAB PO PRN ×2 (00:48→06:14)
[2018-04-17] MEDS: PANTOPRAZOLE SOD 20 MG DELAYED RELEASE TAB PO SCH (05:49)
[2018-04-17 06:32] LABS: AUTOMATED NEUTROPHIL # 3.4 TH/MM3 (1.8-7.7); BASOPHIL # 0.1 TH/MM3 (0-0.2); BASOPHIL % 0.9 % (0.0-2.0); EOSINOPHIL # 0.1 TH/MM3 (0-0.4); HEMATOCRIT 29.1 % (35.0-46.0); HEMOGLOBIN 9.7 GM/DL (11.6-15.3); LYMPH % 27.6 % (9.0-44.0); LYMPHOCYTE # 1.5 TH/MM3 (1.0-4.8); MEAN CELL VOLUME 87.3 FL (80.0-100.0); MEAN CORPUSCULAR HEMOGLOBIN 29.1 PG (27.0-34.0); MEAN CORPUSCULAR HGB CONC 33.3 % (32.0-36.0); MEAN PLATELET VOLUME 8.6 FL (7.0-11.0); MONO % 8.8 % (0.0-8.0); MONOCYTE # 0.5 TH/MM3 (0-0.9); NEUT % 60.7 % (16.0-70.0); PLATELET COUNT 175 TH/MM3 (150-450); RED BLOOD COUNT 3.33 MIL/MM3 (4.00-5.30); WHITE BLOOD COUNT 5.5 TH/MM3 (4.0-11.0)
[2018-04-17 07:07] LABS: ALBUMIN 2.8 GM/DL (3.4-5.0); ALKALINE PHOSPHATASE 55 U/L (45-117); ALT (GPT) 14 U/L (10-53); AST (GOT) 17 U/L (15-37); BLOOD UREA NITROGEN 46 MG/DL (7-18); CALCIUM 9.3 MG/DL (8.5-10.1); CHLORIDE 108 MEQ/L (98-107); CREATININE 2.96 MG/DL (0.50-1.00); GLOMERULAR FILTRATION RATE 19 ML/MIN (>89); GLUCOSE,RANDOM 54 MG/DL (74-106); SODIUM (NA) 143 MEQ/L (136-145); TOTAL BILIRUBIN ADULT 0.2 MG/DL (0.2-1.0); TOTAL PROTEIN 6.5 GM/DL (6.4-8.2)
[2018-04-17] MEDS: INSULIN ASPART SUPPLEMENTAL SCALE SQ SCH ×2 (08:00→12:00)
[2018-04-17] MEDS ORDERED: ASPIRIN 325 MG TAB PO SCH (09:00)
[2018-04-17] MEDS ORDERED: CARVEDILOL 12.5 MG TAB PO SCH (09:00)
[2018-04-17] MEDS ORDERED: LOSARTAN 50 MG TAB PO SCH (09:00)
[2018-04-17] MEDS ORDERED: FUROSEMIDE 20 MG TAB PO SCH (09:00)
[2018-04-17] MEDS ORDERED: PRAVASTATIN SOD 80 MG TAB PO SCH (09:00)
[2018-04-17] MEDS ORDERED: CLOPIDOGREL 75 MG TAB PO SCH (09:00)
[2018-04-17] MEDS: POTASSIUM CHLORIDE 10 MEQ CONTROLLED RELEASE TAB PO SCH (09:02)
[2018-04-17] MEDS: SODIUM CHLORIDE 0.9% FLUSH 10 ML FLUSH IV FLUSH SCH (09:12)
[2018-04-17] MEDS: ISOSORBIDE MONONITRATE 30 MG CR TAB (IMDUR) PO SCH (09:15)
[2018-04-17] MEDS ORDERED: amLODIPine BESYLATE 5 MG TAB PO ONE (11:45)
[2018-04-17] MEDS ORDERED: CARV25TA PO (12:41)
[2018-04-17] MEDS ORDERED: AMLO5 PO (12:41)
[2018-04-17] MEDS ORDERED: POTASSIUM CHLORIDE 20 MEQ CONTROLLED RELEASE TAB PO ONE (12:45)
--- NOTE | 2018-04-17 16:08 | EKG ---
Date Performed: 04/16/2018 Time Performed: 11:05:08 PTAGE: 73 years EKG: Sinus rhythm POSSIBLE LEFT ATRIAL ENLARGEMENT NONSPECIFIC ST & T-WAVE ABNORMALITY BORDERLINE ECG Since the PREVIOUS TRACING , no significant change noted PREVIOUS TRACIN10/21/2015 03.47 DOCTOR: Andie Mcfarland Interpretating Date/Time 04/17/2018 16:07:55
[2018-04-18] MEDS ORDERED: amLODIPine BESYLATE 5 MG TAB PO SCH (09:00)
== END 2018-04-17 13:35 | disposition home or self-care (01) | DRG 305 ==
LOC: NEPE 10:10 → NEDA 16:42 → HCIS 18:22
PROVIDERS: ADMIT Hospitalist; ATTEND Hospitalist
DX: I16.0 Hypertensive urgency (principal); N18.4 Chronic kidney disease, stage 4 (severe); E11.22 Type 2 diabetes mellitus with diabetic chronic kidney disease; I48.91 Unspecified atrial fibrillation; G62.9 Polyneuropathy, unspecified; I12.9 Hypertensive chronic kidney disease with stage 1 through stage 4 chronic kidney disease, or unspecified chronic kidney disease; I25.10 Atherosclerotic heart disease of native coronary artery without angina pectoris; R51 Headache; R07.89 Other chest pain; Z79.4 Long term (current) use of insulin; Z86.73 Personal history of transient ischemic attack (TIA), and cerebral infarction without residual deficits; Z79.82 Long term (current) use of aspirin; E78.00 Pure hypercholesterolemia, unspecified
CPT/HCPCS: 70450; 71046; 71250; 80048; 80053; 82550; 82552; 82948; 83880; 84484; 85025; 85610; 85730; 93005; J0131; J0780; J1200; J1815; J7050

== ENCOUNTER 2018-06-05 19:35 | Inpatient (IN) ==
--- NOTE | 2018-06-05 20:23 | ED ---
HPI General Chief Complaint: Chest Pain Stated Complaint: Pt states chest pain Time Seen by Provider: 06/05/18 20:13 History of Present Illness HPI narrative: 73-year-old female presents to the emergency department by private transportation the care of her daughter for evaluation of 6/10 retrosternal chest pain that has resolved but is left with 7/10 chest pressure on the left side with radiation into the left neck. Patient states approximately an hour before arrival to the emergency department patient was out of doors feeling well and developed sudden onset left-sided and retrosternal chest pain with numbness to the left hand and bilateral lower extremity weakness. Patient felt as if her legs are going to give way but did not fall. Patient did not experience any headache change in mentation or difficulty with vision. Daughter states that she seemed to have some slurring of her speech and seemed to have a fixed stare when they assist her into the house that lasted briefly. Speech has returned to normal according to the daughter and patient states she did not recall having any difficulty with his speech and feels like her speech is normal. Patient states her leg strength has resolved and no longer complains of any leg strength. Patient has chronic knee pain which is persistent and causes her to have difficulty with ambulation and therefore is always using a walker and/or cane for assistive device. Patient has history of coronary vessel disease with previous cardiac catheterizations 3 patient was informed that she has mild distal vessel disease and is managed with medications. Patient has subungual nitroglycerin to take on as-needed basis but did not take any sublingual nitro glycerin prior to arrival to the emergency department. Patient also did not take any aspirin prior to arrival to the emergency department. Patient also has history of dyslipidemia hypertension and diabetes. Patient's had no recent febrile illness. Patient was recently started on cortisone for pain associated with her right carpal tunnel syndrome. Patient states that she is feeling almost back to normal regarding her numbness of her left hand which is almost resolved and is only intermittent and presently not having any numbness in her hand. Patient states legs are back to normal. Patient states she does have some nausea but no short of breath no sweats and no near syncope or syncope. Patient and daughter both report history of previous TIA without residual. Complete Quality Measures for STEMI Alert Patients Related Data Home Medications Medication Instructions Recorded Confirmed aspirin 325 mg PO DAILY 06/05/18 06/05/18 calcitriol 0.5 mcg PO DAILY 06/05/18 06/05/18 carvedilol 25 mg PO BID 06/05/18 06/05/18 clopidogrel [Plavix] 75 mg PO DAILY 06/05/18 06/05/18 cyanocobalamin (vitamin B-12) 5,000 mcg SUBLINGUAL DAILY 06/05/18 06/05/18 [Vitamin B-12] doxazosin [Cardura] 4 mg PO DAILY 06/05/18 06/05/18 furosemide [Lasix] 20 mg PO DAILY 06/05/18 06/05/18 insulin aspart U-100 [Novolog 1 sliding scale dose SUB-Q UD 06/05/18 06/05/18 U-100 Insulin aspart] insulin regular human [Novolin R 30 unit SUB-Q DAILY 06/05/18 06/05/18 Regular U-100 Insuln] isosorbide mononitrate 20 mg PO BID 06/05/18 06/05/18 losartan 50 mg PO DAILY 06/05/18 06/05/18 nitroglycerin 0.4 mg SUBLINGUAL Q5-15M PRN 06/05/18 06/05/18 pravastatin 80 mg PO DAILY 06/05/18 06/05/18 prednisone 5 mg PO DAILY 06/05/18 06/05/18 tizanidine 4 mg PO Q6-8H PRN 06/05/18 06/05/18 Allergies Allergy/AdvReac Type Severity Reaction Status Date / Time codeine Allergy Severe NAUSEA Verified 06/05/18 20:22 penicillin G Allergy Severe Anaphylaxis Verified 06/05/18 20:22 diatrizoate meglumine AdvReac Severe KIDNEY Verified 06/05/18 20:22 IMPAIRMENT gadobenic acid AdvReac Severe KIDNEY Verified 06/05/18 20:22 IMPAIRMENT gadodiamide AdvReac Severe KIDNEY Verified 06/05/18 20:22 IMPAIRMENT gadoteridol AdvReac Severe KIDNEY Verified 06/05/18 20:22 IMPAIRMENT iodixanol AdvReac Severe KIDNEY Verified 06/05/18 20:22 IMPAIRMENT iohexol AdvReac Severe KIDNEY Verified 06/05/18 20:22 IMPAIRMENT Review of Systems Except as stated in HPI: all other systems reviewed are negative [facility] Medical History Medical History CKD (chronic kidney disease) (Acute) Diabetes (Acute) HTN (hypertension) (Acute) Hyperlipemia (Acute) TIA (transient ischemic attack) (Acute) Social History Social History Substance History: No History of Abuse Second Hand Smoke Exposure: No Smoking Status: Never smoker How Often Do You Have a Drink Containing Alcohol: Monthly or less Recent Travel in [facility] within the Last 8 Weeks: No Recent Out of Country Travel within the Last 8 Weeks: No Exam Narrative Exam Narrative: GENERAL: Well-developed well-nourished female no acute distress no respiratory distress; GCS 15 SKIN: Focused skin assessment warm/dry. HEAD: Atraumatic. Normocephalic. EYES: Pupils equal and round. No scleral icterus. No injection or drainage. ENT: No nasal bleeding or discharge. Mucous membranes pink and moist. NECK: Trachea midline. No JVD. CARDIOVASCULAR: Regular rate and rhythm. No murmur appreciated. RESPIRATORY: No accessory muscle use. Clear to auscultation. Breath sounds equal bilaterally. GASTROINTESTINAL: Abdomen soft, non-tender, nondistended. Hepatic and splenic margins not palpable. MUSCULOSKELETAL: No obvious deformities. No clubbing. No cyanosis. No edema. NEUROLOGICAL: Awake and alert. No obvious cranial nerve deficits. Motor grossly within normal limits. No paresthesias. No limb ataxia. No pronator drift. Normal speech. PSYCHIATRIC: Appropriate mood and affect; insight and judgment normal. Course Initial Documented Vital Signs Temperature 98 F 06/05/18 19:54 Pulse Rate 77 06/05/18 19:54 Respiratory Rate 18 06/05/18 19:54 Blood Pressure 246/112 H 06/05/18 19:54 Pulse Oximetry 99 06/05/18 19:54 Last Documented Vital Signs Temperature 98 F 06/05/18 19:54 Pulse Rate 77 06/05/18 19:54 Respiratory Rate 20 06/05/18 20:31 Blood Pressure 239/112 H 06/05/18 20:34 Pulse Oximetry 99 06/05/18 20:31 Medical Decision Making MDM Narrative Medical decision making narrative: 73-year-old female with chest pain with history of CAD dyslipidemia hypertension and diabetes and brief episode of numbness affecting the left hand and weakness of bilateral lower extremities which has resolved. Patient continues to have chest discomfort which she rates 7/10 intensity patient was given sublingual nitroglycerin 0.4 mg to be administered every 5 minutes as needed chest pain or hold for blood pressure less than or equal to [address] brain noncontrast ordered in view of history of TIA BP recorded now and tracker blood pressure elevated to 239/112 At 920 pm blood sugar identified to be 728 and repeat blood pressure, 264/126, noted patient transiently confusional per patient's daughter and patient's nurse however currently patient is GCS of 15; CT brain noncontrast has been ordered stat but remains pending; patient administered labetalol 20 mg IV, denies chest pain or left hand numbness does complain of headache after sublingual nitroglycerin. At 9:55 PM patient continues complain of headache remains hypertension additional dose of labetalol 20 mg IV administered nicardipine infusion initiated patient given 30 mg of morphine IV and Reglan 10 mg IV with episode of vomiting. No chest pain no back pain no neck or jaw pain no left upper extremity pain or paresthesia. Patient being managed for symptomatic acute hypertensive crisis. GCS 15. CT brain pending. Differential Diagnosis Differential Diagnosis: Chest pain, atypical chest pain, ACS, arrhythmia, DC, dissection, Medical Records Medical records reviewed: Yes I reviewed the patient's medical records. Lab Data Result diagrams: 06/05/18 20:18 06/05/18 20:18 Lab Results 06/05/18 06/05/18 06/05/18 Range/Units 20:18 20:18 20:18 WBC 9.2 (4.0-11.0) th/mm3 RBC 3.89 L (4.00-5.30) mil/mm3 Hgb 11.0 L (11.6-15.3) gm/dL Hct 34.8 L (35.0-46.0) % MCV 89.5 (80.0-100.0) fL MCH 28.3 (27.0-34.0) pg MCHC 31.6 L (32.0-36.0) % RDW 14.3 (11.6-17.2) % Plt Count 200 (150-450) th/mm3 MPV 9.2 (7.0-11.0) fL Neut % (Auto) 85.2 H (16.0-70.0) % Lymph % (Auto) 9.5 (9.0-44.0) % Kendall % (Auto) 5.1 (0.0-8.0) % Eos % (Auto) 0.0 (0.0-4.0) % Baso % (Auto) 0.2 (0.0-2.0) % Neut # (Auto) 7.9 H (1.8-7.7) th/mm3 Lymph # (Auto) 0.9 L (1.0-4.8) th/mm3 Kendall # (Auto) 0.5 (0.0-0.9) th/mm3 Eos # (Auto) 0.0 (0.0-0.4) th/mm3 Baso # (Auto) 0.0 (0.0-0.2) th/mm3 WBC Differential . Differential Comment Auto diff final PT 10.7 (9.8-11.6) sec INR 1.1 Ratio APTT 22.2 L (24.3-30.1) sec Sodium 132 L (136-145) meq/L Potassium 4.0 (3.5-5.1) meq/L Chloride 96 L (98-107) meq/L Carbon Dioxide 23.6 (21.0-32.0) meq/L Anion Gap 12 (5-15) meq/L BUN 61 H (7-18) mg/dL Creatinine 3.75 H (0.50-1.00) mg/dL Estimated GFR 14 L (>89) mL/min POC Glucose (68-110) mg/dl Random Glucose 728 H* (74-106) mg/dL Calcium 9.1 (8.5-10.1) mg/dL Total Creatine Kinase 155 (26-192) U/L CK-MB (CK-2) 2.0 (0.5-3.6) ng/mL Troponin I 0.02 (0.02-0.05) ng/mL 06/05/18 Range/Units 21:30 WBC (4.0-11.0) th/mm3 RBC (4.00-5.30) mil/mm3 Hgb (11.6-15.3) gm/dL Hct (35.0-46.0) % MCV (80.0-100.0) fL MCH (27.0-34.0) pg MCHC (32.0-36.0) % RDW (11.6-17.2) % Plt Count (150-450) th/mm3 MPV (7.0-11.0) fL Neut % (Auto) (16.0-70.0) % Lymph % (Auto) (9.0-44.0) % Kendall % (Auto) (0.0-8.0) % Eos % (Auto) (0.0-4.0) % Baso % (Auto) (0.0-2.0) % Neut # (Auto) (1.8-7.7) th/mm3 Lymph # (Auto) (1.0-4.8) th/mm3 Kendall # (Auto) (0.0-0.9) th/mm3 Eos # (Auto) (0.0-0.4) th/mm3 Baso # (Auto) (0.0-0.2) th/mm3 WBC Differential Differential Comment PT (9.8-11.6) sec INR Ratio APTT (24.3-30.1) sec Sodium (136-145) meq/L Potassium (3.5-5.1) meq/L Chloride (98-107) meq/L Carbon Dioxide (21.0-32.0) meq/L Anion Gap (5-15) meq/L BUN (7-18) mg/dL Creatinine (0.50-1.00) mg/dL Estimated GFR (>89) mL/min POC Glucose Greater than 600 H* (68-110) mg/dl Random Glucose (74-106) mg/dL Calcium (8.5-10.1) mg/dL Total Creatine Kinase (26-192) U/L CK-MB (CK-2) (0.5-3.6) ng/mL Troponin I (0.02-0.05) ng/mL Imaging Data Radiologist's impression: Chest X-Ray 06/05/18 20:13 CONCLUSION: Borderline cardiomegaly. ECG Data EKG Prior to Arrival: No Attestation: I personally reviewed and interpreted this ECG as follows: Prior ECG tracings: available for review Interpretation: EKG: Normal sinus rhythm rate 77 LVH by voltage criteria no acute ST elevation or injury pattern change noted; artifact is present at baseline Discharge Plan Discharge Disposition Patient Disposition: 30 Still Patient Discharge Details Diagnosis: Hypertensive crisis, Hyperglycemia due to type 2 diabetes mellitus, Acute on chronic kidney failure Physicians Team ED Provider: Ibeth Chapman Primary Care Provider: Denise Rizvi Rxs /Orders / Referrals /Forms Prescriptions: No Action losartan 50 mg Tablet 50 mg PO DAILY RF: 0 carvedilol 25 mg Tablet 25 mg PO BID RF: 0 aspirin 325 mg Tablet 325 mg PO DAILY RF: 0 isosorbide mononitrate 20 mg Tablet 20 mg PO BID RF: 0 tizanidine 4 mg Tablet 4 mg PO Q6-8H PRN (Reason: Pain, Moderate) RF: 0 prednisone 5 mg Tablet 5 mg PO DAILY RF: 0 clopidogrel [Plavix] 75 mg Tablet 75 mg PO DAILY RF: 0 pravastatin 80 mg Tablet 80 mg PO DAILY RF: 0 insulin aspart U-100 [Novolog U-100 Insulin aspart] 100 unit/mL Solution 1 sliding scale dose SUB-Q UD RF: 0 calcitriol 0.5 mcg Capsule 0.5 mcg PO DAILY RF: 0 insulin regular human [Novolin R Regular U-100 Insuln] 100 unit/mL Solution 30 unit SUB-Q DAILY RF: 0 nitroglycerin 0.4 mg Tablet, Sublingual 0.4 mg SUBLINGUAL Q5-15M PRN (Reason: Chest Pain) RF: 0 doxazosin [Cardura] 4 mg Tablet 4 mg PO DAILY RF: 0 furosemide [Lasix] 20 mg Tablet 20 mg PO DAILY RF: 0 cyanocobalamin (vitamin B-12) [Vitamin B-12] 5,000 mcg Tablet, Sublingual 5,000 mcg SUBLINGUAL DAILY RF: 0 Discharge Instructions Patient Printed Instructions: Chest Pain (ED) Status ED Status: With Doctor
[2018-06-05] MEDS: Sod Chloride 0.9% Inj 1,000 ML IV.CONT SCH (20:30)
[2018-06-05 20:42] LABS: Baso % (Auto) 0.2 % (0.0-2.0); Hematocrit 34.8 % (35.0-46.0); Lymph # (Auto) 0.9 th/mm3 (1.0-4.8); Lymph % (Auto) 9.5 % (9.0-44.0); Mean Corpuscular HGB Conc 31.6 % (32.0-36.0); Mean Corpuscular Hemoglobin 28.3 pg (27.0-34.0); Mean Corpuscular Volume 89.5 fL (80.0-100.0); Mean Platelet Volume 9.2 fL (7.0-11.0); Mono # (Auto) 0.5 th/mm3 (0.0-0.9); Mono % (Auto) 5.1 % (0.0-8.0); Neut # (Auto) 7.9 th/mm3 (1.8-7.7); Neut % (Auto) 85.2 % (16.0-70.0); Platelet Count 200 th/mm3 (150-450); Red Blood Count 3.89 mil/mm3 (4.00-5.30); Red Cell Distribution Width 14.3 % (11.6-17.2); White Blood Count 9.2 th/mm3 (4.0-11.0)
[2018-06-05 20:54] LABS: Activated Partial Thrombo Time 22.2 sec (24.3-30.1); INR 1.1 Ratio; Prothrombin Time 10.7 sec (9.8-11.6)
[2018-06-05 21:08] LABS: Anion Gap 12 meq/L (5-15); Blood Urea Nitrogen 61 mg/dL (7-18); Calcium 9.1 mg/dL (8.5-10.1); Carbon Dioxide 23.6 meq/L (21.0-32.0); Chloride 96 meq/L (98-107); Glomerular Filtration Rate 14 mL/min (>89); Sodium 132 meq/L (136-145)
[2018-06-05 21:13] LABS: Creatine Kinase 155 U/L (26-192); Troponin I 0.02 ng/mL (0.02-0.05)
[2018-06-05 21:14] LABS: Glucose,Random 728 mg/dL (74-106)
[2018-06-05] MEDS ORDERED: Labetalol HCl Inj 100 MG/20 ML Vial IV.PUSH ONE ×2 (21:19→21:49)
--- NOTE | 2018-06-05 21:19 | XR ---
EXAM DATE: 06/05/2018 8:44 PM EDT AGE/SEX: 73 years / Female INDICATIONS: Shortness of breath and chest pain. CLINICAL DATA: This is the patient's initial encounter. Patient reports that signs and symptoms have been present for 1 day and indicates a pain score of 6/10. MEDICAL/SURGICAL HISTORY: Hypertension. Diabetes mellitus type II. Congestive heart failure. None. COMPARISON: [facility] – [place], CHEST PA & LAT, 04/16/2018. . FINDINGS: The heart size is borderline enlarged. The lungs are grossly clear. No effusion is seen. CONCLUSION: Borderline cardiomegaly. Electronically signed by: Lyle Garcia MD 06/05/2018 9:18 PM EDT
[2018-06-05] MEDS ORDERED: Morphine Inj 4 MG/ML Vial IV.PUSH ONE ×2 (21:46→22:43)
[2018-06-05] MEDS ORDERED: niCARdipine Inj 25 MG/10 ML Vial ONE (21:48)
[2018-06-05] MEDS: niCARdipine Inj 25 MG in Sodium Chlor 0.9% Inj 240 ML IV.CONT PRN (21:54)
--- NOTE | 2018-06-05 22:52 | CT ---
EXAM DATE: 06/05/2018 10:27 PM EDT AGE/SEX: 73 years / Female INDICATIONS: Left sided weakness, blurred vision. Altered mental status. CLINICAL DATA: This is the patient's initial encounter. Patient reports that signs and symptoms have been present for 1 day and indicates a pain score of 0/10. MEDICAL/SURGICAL HISTORY: Transient ischemic attack. Diabetes. Hypertension. None. RADIATION DOSE: 36.21 CTDI (mGy) COMPARISON: [facility], CT BRAIN W/O CONTRAST, 04/16/2018. . TECHNIQUE: CT of the head without contrast. Using automated exposure control and adjustment of the mA and/or kV according to patient size, radiation dose was kept as low as reasonably achievable to ob tain optimal diagnostic quality images. DICOM format image data is available electronically for revi ew and comparison. FINDINGS: Cerebrum: The ventricles are normal for age. Periventricular areas of diminished attenuation, parti cularly around the frontal horns are characteristic of small vessel ischemic demyelination. No eviden ce of midline shift, mass lesion, hemorrhage or acute infarction. No extraaxial fluid collections ar e seen. Posterior Fossa: The cerebellum and brainstem are intact. The 4th ventricle is midline. The cerebe llopontine angle is unremarkable. Extracranial: The visualized portion of the orbits is intact. Skull: The calvaria is intact. No evidence of skull fracture. CONCLUSION: 1. 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 2. Nothing acute. Electronically signed by: Nimesh Patton MD 06/05/2018 10:51 PM EDT
[2018-06-05 23:37] LABS: Calcium 9.6 mg/dL (8.5-10.1); Carbon Dioxide 24.3 meq/L (21.0-32.0); Magnesium 2.3 mg/dL (1.5-2.5); Potassium 3.6 meq/L (3.5-5.1)
[2018-06-06] MEDS ORDERED: Acetaminophen 325 MG Tablet PO PRN (00:17)
[2018-06-06] MEDS ORDERED: Dextrose 50% in Water 50 ML Vial IV.PUSH PRN (00:21)
[2018-06-06] MEDS ORDERED: Insulin NovoLOG Aspart Correctional Sugar Inj SQ SCH (00:30)
--- NOTE | 2018-06-06 00:37 | P.HP ---
History of Present Illness Service: [facility] Primary Care Physician: Denise Rizvi MD History of Present Illness: 73-year-old female with a past medical history significant for coronary artery disease, chronic kidney disease, diabetes mellitus, hypertension, hyperlipidemia and history of previous TIA presents to the emergency department for the evaluation of chest pain. History is obtained from emergency department documentation. Patient was brought to the emergency department by her daughter for the evaluation of chest pain and pressure on the left side which with radiation into the left neck. The patient also had bilateral lower extremity weakness that had resolved by the time she arrived to the emergency department. Her daughter states that she had some slurred speech and a fixed stare at the same time of her lower extremity weakness that has since resolved. On arrival to the emergency department the patient's blood pressure was found to be 246/1 1 2. She denied headache at that time. Was given nitro. Was given labetalol 2 without improvement in her blood pressure. Was then started on a nicardipine drip with subsequent response. The patient had a CT scan and became nauseated at which time she was given Reglan. She reported restless legs and then became altered and went to the center of the floor of her room and urinated. This was witnessed by her daughter and emergency department staff. The patient was then given Benadryl and is now sleeping quietly. Additionally, the patient had a blood glucose in the 700s on her arrival to the emergency department. She is status post 16 units of IV insulin with subsequent improvement in her blood glucose. The patient will open her eyes to voice and has no complaints at this time. She rapidly falls back asleep. Review of Systems Unable to obtain secondary to patient's clinical condition [facility] - History History Provided By: Patient - Medical History Medical History: Medical History (Last Updated 06/06/18 @ 00:23 by Eva Blancas MD) CAD (coronary artery disease) CKD (chronic kidney disease) Diabetes HTN (hypertension) Hyperlipemia TIA (transient ischemic attack) - Surgical History Surgical History: Surgical History (Last Updated 06/06/18 @ 00:24 by Eva Blancas MD) H/O cardiac catheterization - Family History Family History: Family History (Last Updated 06/06/18 @ 00:25 by Eva Blancas MD) Other Unknown family medical history - Tobacco History Second Hand Smoke Exposure: No Tobacco Use In Past 30 Days: No Smoking Status: Never smoker - Alcohol History How Often Do You Have a Drink Containing Alcohol: Monthly or less - Substance Use History Substance History: No History of Abuse - Travel History Recent Travel in the [place] Within the Last 8 Weeks: No Recent Travel Out of the Country Within the Last 8 Weeks: No - Immunization History Tetanus Immunization: Unsure Hx Influenza Vaccine This Season: Yes Medications and Allergies Active Medications: Active Medications Sodium Chloride (Ns Inj) 1,000 mls @ 100 mls/hr IV.CONT .Q10H DERRICK Last Admin: 06/05/18 20:30 Dose: 100 mls/hr Nicardipine HCl 25 mg/ Sodium (Chloride) 250 mls @ 50 mls/hr IV.CONT TITRATE PRN; Protocol PRN Reason: Per Protocol Last Titration: 06/05/18 23:55 Dose: 10 mg/hr, 100 mls/hr Sodium Chloride (Ns Flush) 2 ml IV.FLUSH UNSCH PRN PRN Reason: FLUSH AFTER USING IV ACCESS Allergies Allergy/AdvReac Type Severity Reaction Status Date / Time codeine Allergy Severe NAUSEA Verified 06/05/18 20:22 penicillin G Allergy Severe Anaphylaxis Verified 06/05/18 20:22 diatrizoate meglumine AdvReac Severe KIDNEY Verified 06/05/18 20:22 IMPAIRMENT gadobenic acid AdvReac Severe KIDNEY Verified 06/05/18 20:22 IMPAIRMENT gadodiamide AdvReac Severe KIDNEY Verified 06/05/18 20:22 IMPAIRMENT gadoteridol AdvReac Severe KIDNEY Verified 06/05/18 20:22 IMPAIRMENT iodixanol AdvReac Severe KIDNEY Verified 06/05/18 20:22 IMPAIRMENT iohexol AdvReac Severe KIDNEY Verified 06/05/18 20:22 IMPAIRMENT Home Medications Medication Instructions Recorded Confirmed Type aspirin 325 mg PO DAILY 06/05/18 06/05/18 History calcitriol 0.5 mcg PO DAILY 06/05/18 06/05/18 History carvedilol 25 mg PO BID 06/05/18 06/05/18 History clopidogrel [Plavix] 75 mg PO DAILY 06/05/18 06/05/18 History cyanocobalamin (vitamin B-12) 5,000 mcg SUBLINGUAL DAILY 06/05/18 06/05/18 History [Vitamin B-12] doxazosin [Cardura] 4 mg PO DAILY 06/05/18 06/05/18 History furosemide [Lasix] 20 mg PO DAILY 06/05/18 06/05/18 History insulin aspart U-100 [Novolog 1 sliding scale dose SUB-Q UD 06/05/18 06/05/18 History U-100 Insulin aspart] insulin regular human [Novolin R 30 unit SUB-Q DAILY 06/05/18 06/05/18 History Regular U-100 Insuln] isosorbide mononitrate 20 mg PO BID 06/05/18 06/05/18 History losartan 50 mg PO DAILY 06/05/18 06/05/18 History nitroglycerin 0.4 mg SUBLINGUAL Q5-15M PRN 06/05/18 06/05/18 History pravastatin 80 mg PO DAILY 06/05/18 06/05/18 History prednisone 5 mg PO DAILY 06/05/18 06/05/18 History tizanidine 4 mg PO Q6-8H PRN 06/05/18 06/05/18 History Exam Vital signs: Vital Signs 06/05/18 19:54 06/05/18 20:26 06/05/18 20:31 Temperature 98 F Pulse Rate 77 Respiratory Rate 18 20 Blood Pressure 246/112 H Pulse Oximetry 99 98 98 06/05/18 20:34 06/05/18 22:10 06/05/18 22:31 Temperature Pulse Rate 78 Respiratory Rate 18 Blood Pressure 239/112 H 180/91 H 212/94 H Pulse Oximetry 06/05/18 23:12 06/05/18 23:54 Temperature Pulse Rate 75 79 Respiratory Rate 16 18 Blood Pressure 160/65 H 170/65 H Pulse Oximetry 98 98 Intake & Output 06/05/18 06/05/18 06/06/18 06:59 18:59 06:59 Weight 99.79 kg Narrative: Gen.: No acute distress. Patient sitting up in bed sleeping. Head: Normocephalic. Atraumatic. EENT: Pupils equal round and reactive to light. Nose without drainage. Airway intact. Cardiovascular: Regular rate and rhythm. No murmurs, rubs or gallops. Respiratory: Lungs clear to auscultation bilaterally. No wheezes or rhonchi. Abdomen: Soft, nontender, nondistended. No peritoneal signs. Musculoskeletal: No gross deformities. No edema. Skin: No obvious rashes or erythema. Neuro: Moves all 4 extremities spontaneously Results - Labs CBC & Chem 7: 06/05/18 20:18 06/05/18 23:06 Labs: Laboratory Results - last 24 hr 06/05/18 06/05/18 06/05/18 20:18 20:18 20:18 WBC 9.2 RBC 3.89 L Hgb 11.0 L Hct 34.8 L MCV 89.5 MCH 28.3 MCHC 31.6 L RDW 14.3 Plt Count 200 MPV 9.2 Neut % (Auto) 85.2 H Lymph % (Auto) 9.5 [place] % (Auto) 5.1 Eos % (Auto) 0.0 Baso % (Auto) 0.2 Neut # (Auto) 7.9 H Lymph # (Auto) 0.9 L [place] # (Auto) 0.5 Eos # (Auto) 0.0 Baso # (Auto) 0.0 WBC Differential . Differential Comment Auto diff final PT 10.7 INR 1.1 APTT 22.2 L Sodium 132 L Potassium 4.0 Chloride 96 L Carbon Dioxide 23.6 Anion Gap 12 BUN 61 H Creatinine 3.75 H Estimated GFR 14 L POC Glucose Random Glucose 728 H* Calcium 9.1 Magnesium Total Creatine Kinase 155 CK-MB (CK-2) 2.0 Troponin I 0.02 06/05/18 06/05/18 06/05/18 21:30 21:30 23:06 WBC RBC Hgb Hct MCV MCH MCHC RDW Plt Count MPV Neut % (Auto) Lymph % (Auto) [place] % (Auto) Eos % (Auto) Baso % (Auto) Neut # (Auto) Lymph # (Auto) [place] # (Auto) Eos # (Auto) Baso # (Auto) WBC Differential Differential Comment PT INR APTT Sodium 139 Potassium 3.6 Chloride 103 Carbon Dioxide 24.3 Anion Gap 12 BUN 66 H Creatinine 3.57 H Estimated GFR 15 L POC Glucose Greater than 600 H* Random Glucose 673 H* 359 H D Calcium 9.6 Magnesium 2.3 Total Creatine Kinase CK-MB (CK-2) Troponin I - Imaging Impressions Chest X-Ray 06/05/18 20:13 CONCLUSION: Borderline cardiomegaly. Head CT 06/05/18 21:20 CONCLUSION: 1. 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 2. Nothing acute. Caprini VTE Risk Assessment Caprini VTE Risk Assessment: Moderate/High Risk (score >= 2) Caprini Risk Assessment Model: Point Value = 1 Point Value = 2 Point Value = 3 Point Value = 5 Age 41-60 Minor surgery BMI > 25 kg/m2 Swollen legs Varicose veins or History of unexplained or recurrent spontaneous Oral contraceptives or hormone replacement Sepsis (< 1 month) Serious lung disease, including pneumonia (< 1 month) Abnormal pulmonary function Acute myocardial infarction Congestive heart failure (< 1 month) History of inflammatory bowel disease Medical patient at bed rest Age 61-74 Arthroscopic surgery Major open surgery (> 45 min) Laparoscopic surgery (> 45 min) Malignancy Confined to bed (> 72 hours) Immobilizing plaster cast Central venous access Age >= 75 History of VTE Family history of VTE Factor V Leiden Prothrombin [id number] Lupus anticoagulant Anticardiolipin antibodies Elevated serum homocysteine Heparin-induced thrombocytopenia Other congenital or acquired thrombophilia Stroke (< 1 month) Elective arthroplasty Hip, pelvis, or leg fracture Acute spinal cord injury (< 1 month) Prophylaxis Regimen: Total Risk Factor Score Risk Level Prophylaxis Regimen 0-1 Low Early ambulation 2 Moderate Order ONE of the following: *Sequential Compression Device (SCD) *Heparin 5000 units SQ BID 3-4 Higher Order ONE of the following medications: *Heparin 5000 units SQ TID *Enoxaparin/Lovenox 40 mg SQ daily (WT < 150 kg, CrCl > 30 mL/min) *Enoxaparin/Lovenox 30 mg SQ daily (WT < 150 kg, CrCl > 10-29 mL/min) *Enoxaparin/Lovenox 30 mg SQ BID (WT < 150 kg, CrCl > 30 mL/min) AND/OR *Sequential Compression Device (SCD) 5 or more Highest Order ONE of the following medications: *Heparin 5000 units SQ TID (Preferred with Epidurals) *Enoxaparin/Lovenox 40 mg SQ daily (WT < 150 kg, CrCl > 30 mL/min) *Enoxaparin/Lovenox 30 mg SQ daily (WT < 150 kg, CrCl > 10-29 mL/min) *Enoxaparin/Lovenox 30 mg SQ BID (WT < 150 kg, CrCl > 30 mL/min) AND *Sequential Compression Device (SCD) Assessment and Plan - Plan Assessment/plan: 1. Chest pain Patient with left-sided chest pain/pressure that radiated to the left jaw EKG shows normal sinus rhythm without ST segment elevations or depressions, personally reviewed Initial troponin negative ACS rule out pending; serial troponins/EKGs 2. Altered mental status/lower extremity weakness/slurred speech History of TIA Head CT negative for acute process MRI/MRA, carotid ultrasound pending Neurology consulted, appreciate recommendations Continue Plavix 3. Diabetes mellitus/hyperglycemia Status post 16 units IV insulin Sliding-scale insulin Monitor blood glucose Holding home insulin as patient n.p.o. 4. Acute on chronic kidney injury Creatinine 3.75, baseline 2.9 IV fluid hydration Monitor renal function 5. Hypertension/hyperlipidemia/CAD Continue home medications FEN N.p.o. Electrolytes: Monitor and replete as needed NS at 100 cc/hour
[2018-06-06 02:10] LABS: Bilirubin,Urine Negative (Negative); Clarity,Urine Clear (Clear); Color,Urine Straw (Yellw/Straw); Glucose,Urine (UA) 500 or Greater mg/dL (Negative); Leukocyte Esterase,Urine Negative (Negative); Nitrite,Urine Negative (Negative); Specific Gravity,Urine 1.013 (1.002-1.035); Squamous Epithelial Cell,Urine 1 /hpf (0-5)
[2018-06-06] MEDS: niCARdipine Inj 25 MG in Sodium Chlor 0.9% Inj 240 ML IV.CONT PRN (02:34)
[2018-06-06] MEDS: Chlorhexidine Gluconate 2% 1 Pack (2 Cloths) TOPICAL SCH (03:38)
[2018-06-06] MEDS: Insulin NovoLOG Aspart Correctional Sugar Inj SQ SCH ×5 (03:39→22:57)
[2018-06-06] MEDS ORDERED: Chlorhexidine Gluconate 2% 1 Pack (2 Cloths) TOPICAL PRN (04:00)
[2018-06-06] MEDS: niCARdipine Inj 50 MG in Sodium Chlor 0.9% Inj 480 ML IV.CONT PRN ×4 (05:24→19:20)
[2018-06-06 06:01] LABS: Baso % (Auto) 0.3 % (0.0-2.0); Hematocrit 32.6 % (35.0-46.0); Hemoglobin 10.8 gm/dL (11.6-15.3); Lymph # (Auto) 1.3 th/mm3 (1.0-4.8); Lymph % (Auto) 11.9 % (9.0-44.0); Mean Corpuscular HGB Conc 33.1 % (32.0-36.0); Mean Corpuscular Hemoglobin 28.8 pg (27.0-34.0); Mean Corpuscular Volume 86.9 fL (80.0-100.0); Mean Platelet Volume 8.5 fL (7.0-11.0); Mono # (Auto) 0.7 th/mm3 (0.0-0.9); Mono % (Auto) 6.2 % (0.0-8.0); Neut # (Auto) 9.2 th/mm3 (1.8-7.7); Neut % (Auto) 81.6 % (16.0-70.0); Platelet Count 186 th/mm3 (150-450); Red Blood Count 3.75 mil/mm3 (4.00-5.30); White Blood Count 11.3 th/mm3 (4.0-11.0)
[2018-06-06 06:29] LABS: Troponin I 0.05 ng/mL (0.02-0.05)
[2018-06-06] MEDS ORDERED: INSULIN REGULAR HUMAN 30 UNIT SQ SCH (09:00)
--- NOTE | 2018-06-06 09:14 | US ---
EXAM DATE: 06/06/2018 8:51 AM EDT AGE/SEX: 73 years / Female INDICATIONS: Transient ischemic attack. CLINICAL DATA: This is the patient's initial encounter. Patient reports that signs and symptoms have been present for 2 days and indicates a pain score of 4/10. MEDICAL/SURGICAL HISTORY: . Coronary artery disease. CKD. Diabetes. HTN. Hyperlipidemia. TIA. . Cardiac cath. COMPARISON: No prior exams available for comparison. VELOCITY PARAMETERS: ICA/CCA Ratio: Right 1.3 , Left 1.1 ICA: Right 132 cm/sec, Left 120 cm/sec CCA: Right 102 cm/sec, Left 111 cm/sec ECA: Right 136 cm/sec, Left 110 cm/sec Vertebral: Right 58 cm/sec antegrade, Left 70 cm/sec antegrade FINDINGS: RIGHT CAROTID: There is no evidence for a hemodynamically significant carotid stenosis. Minimal int imal hyperplasia is present with scattered calcific plaque. LEFT CAROTID: There is no evidence for a hemodynamically significant carotid stenosis. Minimal inti mal hyperplasia is present with scattered calcific plaque. Flow is antegrade in both vertebral arteries. 8 mm apparent lymph node left lateral neck.. CONCLUSION: Scattered moderate calcific plaque without hemodynamically significant stenosis 8 mm apparent lymph node left lateral neck. Abhinav Jenkins MD FACR Electronically signed by: Abhinav Jenkins MD 06/06/2018 9:12 AM EDT
[2018-06-06] MEDS: Calcitriol 0.25 MCG Capsule PO SCH (09:49)
[2018-06-06] MEDS: Isosorbide Mononitrate 20 MG Tablet PO SCH ×2 (09:49→21:36)
[2018-06-06] MEDS: predniSONE 5 MG Tablet PO SCH (09:49)
[2018-06-06] MEDS: Sod Chloride 0.9% Inj 1,000 ML IV.CONT SCH ×2 (09:50→21:35)
[2018-06-06] MEDS: Furosemide 20 MG Tablet PO SCH (09:50)
[2018-06-06] MEDS: Doxazosin 4 MG Tablet PO SCH (09:50)
--- NOTE | 2018-06-06 09:52 | P.PNIM ---
Subjective Interval history: patient states that she feels much better. She denies any headaches. She has no chest pain. She has no focalized weakness or numbness. She feels like her back to normal self at this time. Physical Exam Vital signs: Vital Signs 06/05/18 19:54 06/05/18 20:26 06/05/18 20:31 Temperature 98 F Pulse Rate 77 Respiratory Rate 18 20 Blood Pressure 246/112 H Pulse Oximetry 99 98 98 06/05/18 20:34 06/05/18 22:10 06/05/18 22:31 Temperature Pulse Rate 78 Respiratory Rate 18 Blood Pressure 239/112 H 180/91 H 212/94 H Pulse Oximetry 06/05/18 23:12 06/05/18 23:54 06/06/18 00:17 Temperature Pulse Rate 75 79 78 Respiratory Rate 16 18 18 Blood Pressure 160/65 H 170/65 H 167/75 H Pulse Oximetry 98 98 06/06/18 01:48 06/06/18 01:50 06/06/18 02:00 Temperature 99.8 F H Pulse Rate 93 H 98 H 90 Respiratory Rate 33 H 29 H 26 H Blood Pressure 141/95 H 152/93 H Pulse Oximetry 97 97 06/06/18 02:11 06/06/18 03:00 06/06/18 03:15 Temperature Pulse Rate 92 H 98 H 97 H Respiratory Rate 41 H 24 Blood Pressure 170/79 H 177/79 H Pulse Oximetry 95 93 L 06/06/18 03:30 06/06/18 03:32 06/06/18 03:45 Temperature Pulse Rate 99 H 101 H 100 H Respiratory Rate 21 28 H 22 Blood Pressure 186/78 H 189/78 H 194/80 H Pulse Oximetry 92 L 94 L 92 L 06/06/18 04:00 06/06/18 04:11 06/06/18 04:15 Temperature 99.9 F H Pulse Rate 102 H 104 H 104 H Respiratory Rate 27 H 28 H Blood Pressure 181/76 H 180/75 H Pulse Oximetry 92 L 93 L 06/06/18 04:30 06/06/18 04:45 06/06/18 05:00 Temperature Pulse Rate 101 H 100 H 100 H Respiratory Rate 34 H 40 H 33 H Blood Pressure 182/78 H 178/77 H 175/74 H Pulse Oximetry 92 L 92 L 91 L 06/06/18 05:15 06/06/18 05:29 06/06/18 06:00 Temperature Pulse Rate 100 H 96 H Respiratory Rate 38 H 26 H Blood Pressure 169/72 H Pulse Oximetry 92 L 06/06/18 07:20 Temperature Pulse Rate Respiratory Rate Blood Pressure Pulse Oximetry 92 L Intake & Output 06/05/18 06/06/18 06/06/18 18:59 06:59 18:59 Intake Total 500 / 500 Output Total 225 / 225 Balance 275 / 275 Weight 100.2 kg Intake: IV 500 / 500 Cardene Inj 25 MG In NS Inj 240 500 / 500 ML @ 5 MG/HR 50 mls/hr IV.CONT TITRATE PRN Rx#:[id number] Output: Urine 225 / 225 Other: Weight On Admission 99.8 kg Narrative: GENERAL: This is a well-nourished, well-developed patient, in no apparent distress. CARDIOVASCULAR: Regular rate and rhythm without murmurs, gallops, or rubs. RESPIRATORY: Clear to auscultation. Breath sounds equal bilaterally. No wheezes , rales, or rhonchi. GASTROINTESTINAL: Abdomen soft, non-tender, nondistended. Normal active bowel sounds MUSCULOSKELETAL: Extremities without clubbing, cyanosis, or edema. NEURO: Alert & Oriented x4 to person, place, time, situation. Moves all ext x4 Results - Labs CBC & Chem 7: 06/06/18 05:43 06/05/18 23:06 Laboratory Results - last 24 hr 06/05/18 06/05/18 06/05/18 20:18 20:18 20:18 WBC 9.2 RBC 3.89 L Hgb 11.0 L Hct 34.8 L MCV 89.5 MCH 28.3 MCHC 31.6 L RDW 14.3 Plt Count 200 MPV 9.2 Neut % (Auto) 85.2 H Lymph % (Auto) 9.5 [place] % (Auto) 5.1 Eos % (Auto) 0.0 Baso % (Auto) 0.2 Neut # (Auto) 7.9 H Lymph # (Auto) 0.9 L [place] # (Auto) 0.5 Eos # (Auto) 0.0 Baso # (Auto) 0.0 WBC Differential . Differential Comment Auto diff final PT 10.7 INR 1.1 APTT 22.2 L Sodium 132 L Potassium 4.0 Chloride 96 L Carbon Dioxide 23.6 Anion Gap 12 BUN 61 H Creatinine 3.75 H Estimated GFR 14 L POC Glucose Random Glucose 728 H* Calcium 9.1 Magnesium Total Creatine Kinase 155 CK-MB (CK-2) 2.0 Troponin I 0.02 Urine Color Urine Clarity Urine pH Ur Specific [place] Urine Protein Urine Glucose (UA) Urine Ketones Urine Occult Blood Urine Nitrate Urine Bilirubin Urine Urobilinogen Ur Leukocyte Esterase Urine RBC Urine WBC Ur Squamous Epith Cells Micro UA Comment Urine Culture Comments Nasal Screen MRSA (PCR) 06/05/18 06/05/18 06/05/18 21:30 21:30 23:06 WBC RBC Hgb Hct MCV MCH MCHC RDW Plt Count MPV Neut % (Auto) Lymph % (Auto) [place] % (Auto) Eos % (Auto) Baso % (Auto) Neut # (Auto) Lymph # (Auto) [place] # (Auto) Eos # (Auto) Baso # (Auto) WBC Differential Differential Comment PT INR APTT Sodium 139 Potassium 3.6 Chloride 103 Carbon Dioxide 24.3 Anion Gap 12 BUN 66 H Creatinine 3.57 H Estimated GFR 15 L POC Glucose Greater than 600 H* Random Glucose 673 H* 359 H D Calcium 9.6 Magnesium 2.3 Total Creatine Kinase CK-MB (CK-2) Troponin I Urine Color Urine Clarity Urine pH Ur Specific [place] Urine Protein Urine Glucose (UA) Urine Ketones Urine Occult Blood Urine Nitrate Urine Bilirubin Urine Urobilinogen Ur Leukocyte Esterase Urine RBC Urine WBC Ur Squamous Epith Cells Micro UA Comment Urine Culture Comments Nasal Screen MRSA (PCR) 06/06/18 06/06/18 06/06/18 00:39 01:15 01:50 WBC RBC Hgb Hct MCV MCH MCHC RDW Plt Count MPV Neut % (Auto) Lymph % (Auto) [place] % (Auto) Eos % (Auto) Baso % (Auto) Neut # (Auto) Lymph # (Auto) [place] # (Auto) Eos # (Auto) Baso # (Auto) WBC Differential Differential Comment PT INR APTT Sodium Potassium Chloride Carbon Dioxide Anion Gap BUN Creatinine Estimated GFR POC Glucose 240 H Random Glucose Calcium Magnesium Total Creatine Kinase CK-MB (CK-2) Troponin I Urine Color Straw Urine Clarity Clear Urine pH 6.0 Ur Specific [place] 1.013 Urine Protein 100 H Urine Glucose (UA) 500 or greater Urine Ketones Negative Urine Occult Blood Small H Urine Nitrate Negative Urine Bilirubin Negative Urine Urobilinogen Less than 2 Ur Leukocyte Esterase Negative Urine RBC 1 Urine WBC Less than 1 Ur Squamous Epith Cells 1 Micro UA Comment Culture not ind Urine Culture Comments Culture not ind Nasal Screen MRSA (PCR) Not detected 06/06/18 06/06/18 06/06/18 03:00 05:43 05:43 WBC 11.3 H RBC 3.75 L Hgb 10.8 L Hct 32.6 L MCV 86.9 MCH 28.8 MCHC 33.1 RDW 14.0 Plt Count 186 MPV 8.5 Neut % (Auto) 81.6 H Lymph % (Auto) 11.9 [place] % (Auto) 6.2 Eos % (Auto) 0.0 Baso % (Auto) 0.3 Neut # (Auto) 9.2 H Lymph # (Auto) 1.3 [place] # (Auto) 0.7 Eos # (Auto) 0.0 Baso # (Auto) 0.0 WBC Differential . Differential Comment Auto diff final PT INR APTT Sodium Potassium Chloride Carbon Dioxide Anion Gap BUN Creatinine Estimated GFR POC Glucose 318 H Random Glucose Calcium Magnesium Total Creatine Kinase 140 CK-MB (CK-2) Troponin I 0.05 Urine Color Urine Clarity Urine pH Ur Specific [place] Urine Protein Urine Glucose (UA) Urine Ketones Urine Occult Blood Urine Nitrate Urine Bilirubin Urine Urobilinogen Ur Leukocyte Esterase Urine RBC Urine WBC Ur Squamous Epith Cells Micro UA Comment Urine Culture Comments Nasal Screen MRSA (PCR) 06/06/18 08:01 WBC RBC Hgb Hct MCV MCH MCHC RDW Plt Count MPV Neut % (Auto) Lymph % (Auto) [place] % (Auto) Eos % (Auto) Baso % (Auto) Neut # (Auto) Lymph # (Auto) [place] # (Auto) Eos # (Auto) Baso # (Auto) WBC Differential Differential Comment PT INR APTT Sodium Potassium Chloride Carbon Dioxide Anion Gap BUN Creatinine Estimated GFR POC Glucose 252 H Random Glucose Calcium Magnesium Total Creatine Kinase CK-MB (CK-2) Troponin I Urine Color Urine Clarity Urine pH Ur Specific [place] Urine Protein Urine Glucose (UA) Urine Ketones Urine Occult Blood Urine Nitrate Urine Bilirubin Urine Urobilinogen Ur Leukocyte Esterase Urine RBC Urine WBC Ur Squamous Epith Cells Micro UA Comment Urine Culture Comments Nasal Screen MRSA (PCR) - Imaging Impressions Chest X-Ray 06/05/18 20:13 CONCLUSION: Borderline cardiomegaly. Head CT 06/05/18 21:20 CONCLUSION: 1. 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 2. Nothing acute. Carotid Doppler Study 06/06/18 00:00 CONCLUSION: Scattered moderate calcific plaque without hemodynamically significant stenosis 8 mm apparent lymph node left lateral neck. Abhinav Jenkins MD FACR Assessment and Plan - Plan 73-year-old female presents with chest pain and hypertensive emergency of blood pressures 246/112 Assessment/plan: 1. Chest pain may be due to hypertensive emergency Patient with left-sided chest pain/pressure that radiated to the left jaw EKG shows normal sinus rhythm without ST segment elevations or depressions Initial troponin negative Serial cardiac enzymes are negative. 2. Suspect hypertensive encephalopathy with hypertensive emergency - Mental status now back at baseline and much improved after control of blood pressure. Currently on the nifedipine drip and will continue to wean off as tolerated. 3. Altered mental status/lower extremity weakness/slurred speech rule out underlying TIA CVA Suspect altered mental status may be due to hypertensive encephalopathy History of TIA Head CT negative for acute process MRI/MRA, carotid ultrasound pending Neurology consulted, appreciate recommendations Continue Plavix 3. Diabetes mellitus type II uncontrolled/hyperglycemia Status post 16 units IV insulin Sliding-scale insulin Monitor blood glucose Resume home diet and start insulin 4. Acute on chronic kidney disease stage IV Creatinine 3.75, baseline 2.9 IV fluid hydration Monitor renal function Avoid nephrotoxic. 5. Hypertension/hyperlipidemia/CAD Continue home medications 6. DVT prophylaxisPlavix, subcu heparin
--- NOTE | 2018-06-06 11:41 | P.CONNEU ---
History of Present Illness Service: Neurology Consult date: 06/06/18 Reason for Consult: Altered mental status Primary Care Provider: Denise Rizvi MD Family Provider: Denise Rizvi MD Chief Complaint: Altered mental status History of Present Illness: 73-year-old female with hx of coronary artery disease, chronic kidney disease, diabetes mellitus, hypertension, hyperlipidemia and history of previous TIAs presented to the ER with severe chest pain. She reports she was standing outside when she developed severe chest pain that radiated to her neck and then felt like she blacked out. She is unsure if she fell. She did note some weakness in bilateral legs and reports she has chronic knee pain. She denied any weakness in her arms or sensory changes. She was able to walk. According to the chart her daughter noted slurred speech and staring during the event. No headache. She feels she is back to baseline. She denies weakness in her legs at this time. No hx of seizure. She reports she has been on ASA and Plavix daily Review of Systems All other systems reviewed negative except as stated in HPI [facility] - History History Provided By: Patient - Medical / Surgical Hx Neg / Unobtainable Medical Problems Denied: Yes - Medical History Medical History: Medical History (Last Updated 06/06/18 @ 00:23 by Eva Blancas MD) CAD (coronary artery disease) CKD (chronic kidney disease) Diabetes HTN (hypertension) Hyperlipemia TIA (transient ischemic attack) - Surgical History Surgical History: Surgical History (Last Updated 06/06/18 @ 00:24 by Eva Blancas MD) H/O cardiac catheterization - Family History Family History: Family History (Last Updated 06/06/18 @ 00:25 by Eva Blancas MD) Other Unknown family medical history - Tobacco History Second Hand Smoke Exposure: No Tobacco Use In Past 30 Days: No Smoking Status: Never smoker - Alcohol History How Often Do You Have a Drink Containing Alcohol: Monthly or less - Substance Use History Substance History: No History of Abuse - Travel History Recent Travel in the [place] Within the Last 8 Weeks: No Recent Travel Out of the Country Within the Last 8 Weeks: No - Immunization History Tetanus Immunization: Unsure Hx Influenza Vaccine This Season: Yes Medications and Allergies Allergies Allergy/AdvReac Type Severity Reaction Status Date / Time codeine Allergy Severe NAUSEA Verified 06/05/18 20:22 penicillin G Allergy Severe Anaphylaxis Verified 06/05/18 20:22 diatrizoate meglumine AdvReac Severe KIDNEY Verified 06/05/18 20:22 IMPAIRMENT gadobenic acid AdvReac Severe KIDNEY Verified 06/05/18 20:22 IMPAIRMENT gadodiamide AdvReac Severe KIDNEY Verified 06/05/18 20:22 IMPAIRMENT gadoteridol AdvReac Severe KIDNEY Verified 06/05/18 20:22 IMPAIRMENT iodixanol AdvReac Severe KIDNEY Verified 06/05/18 20:22 IMPAIRMENT iohexol AdvReac Severe KIDNEY Verified 06/05/18 20:22 IMPAIRMENT Home Medications Medication Instructions Recorded Confirmed Type aspirin 325 mg PO DAILY 06/05/18 06/05/18 History calcitriol 0.5 mcg PO DAILY 06/05/18 06/05/18 History carvedilol 25 mg PO BID 06/05/18 06/05/18 History clopidogrel [Plavix] 75 mg PO DAILY 06/05/18 06/05/18 History cyanocobalamin (vitamin B-12) 5,000 mcg SUBLINGUAL DAILY 06/05/18 06/05/18 History [Vitamin B-12] doxazosin [Cardura] 4 mg PO DAILY 06/05/18 06/05/18 History furosemide [Lasix] 20 mg PO DAILY 06/05/18 06/05/18 History insulin aspart U-100 [Novolog 1 sliding scale dose SUB-Q UD 06/05/18 06/05/18 History U-100 Insulin aspart] insulin regular human [Novolin R 30 unit SUB-Q DAILY 06/05/18 06/05/18 History Regular U-100 Insuln] isosorbide mononitrate 20 mg PO BID 06/05/18 06/05/18 History losartan 50 mg PO DAILY 06/05/18 06/05/18 History nitroglycerin 0.4 mg SUBLINGUAL Q5-15M PRN 06/05/18 06/05/18 History pravastatin 80 mg PO DAILY 06/05/18 06/05/18 History prednisone 5 mg PO DAILY 06/05/18 06/05/18 History tizanidine 4 mg PO Q6-8H PRN 06/05/18 06/05/18 History Active Medications: Active Medications Acetaminophen (Tylenol) 650 mg PO Q4H PRN PRN Reason: Temp > 100.4 Calcitriol (Rocaltrol) 0.5 mcg PO DAILY [facility] Last Admin: 06/06/18 09:49 Dose: 0.5 mcg Chlorhexidine Gluconate (Chlorhexidine 2% Cloth) 3 pack TOPICAL DAILY@0400 [facility] Stop: 06/11/18 03:59 Last Admin: 06/06/18 03:38 Dose: 3 pack Chlorhexidine Gluconate (Chlorhexidine 2% Cloth) 3 pack TOPICAL DAILY@0400 PRN PRN Reason: Extra cloth needed Stop: 06/11/18 03:59 Clopidogrel Bisulfate (Plavix) 75 mg PO DAILY [facility] Last Admin: 06/06/18 09:49 Dose: 75 mg Cyanocobalamin (Vitamin B12) 5,000 mcg PO DAILY [facility] Last Admin: 06/06/18 09:49 Dose: 5,000 mcg Dextrose (D50w Vial) 50 ml IV.PUSH UNSCH PRN PRN Reason: PER HYPOGLYCEMIA PROTOCOL Doxazosin Mesylate (Cardura) 4 mg PO DAILY [facility] Last Admin: 06/06/18 09:50 Dose: 4 mg Furosemide (Lasix) 20 mg PO DAILY [facility] Last Admin: 06/06/18 09:50 Dose: 20 mg Glucagon (Glucagon Inj) 1 mg OTHER UNSCH PRN PRN Reason: for Hypoglycemia Protocol Sodium Chloride (Ns Inj) 1,000 mls @ 100 mls/hr IV.CONT .Q10H [facility] Last Admin: 06/06/18 09:50 Dose: 100 mls/hr Nicardipine HCl 50 mg/ Sodium (Chloride) 500 mls @ 50 mls/hr IV.CONT TITRATE PRN; Protocol PRN Reason: Per Protocol Last Admin: 06/06/18 10:00 Dose: 10 mg/hr, 100 mls/hr Insulin Aspart (Novolog Insulin Correctional Sugar Inj) 0 unit SQ ACHS AND 3AM DERRICK; Protocol Last Admin: 06/06/18 09:48 Dose: 7 unit Insulin Detemir (Levemir Inj) 10 unit SQ HS [facility]; Protocol Isosorbide Mononitrate (Ismo) 20 mg PO BID [facility] Last Admin: 06/06/18 09:49 Dose: 20 mg Losartan Potassium (Cozaar) 50 mg PO DAILY [facility] Last Admin: 06/06/18 09:50 Dose: 50 mg Nifedipine (Procardia Xl) 60 mg PO DAILY [facility] Non-Formulary Medication (Carvedilol [Carvedilol]) 25 mg PO BID [facility] Ondansetron HCl (Zofran Odt) 4 mg PO Q6H PRN PRN Reason: NAUSEA OR VOMITING Pravastatin Sodium (Pravachol) 80 mg PO DAILY [facility] Last Admin: 06/06/18 09:50 Dose: 80 mg Prednisone (Deltasone) 5 mg PO DAILY [facility] Last Admin: 06/06/18 09:49 Dose: 5 mg Sodium Chloride (Ns Flush) 2 ml IV.FLUSH UNSCH PRN PRN Reason: FLUSH AFTER USING IV ACCESS Sodium Chloride (Ns Flush) 2 ml IV.FLUSH PRN PRN PRN Reason: FLUSH AFTER USING IV ACCESS Sodium Chloride (Ns Flush) 2 ml IV.FLUSH BID [facility] Last Admin: 06/06/18 09:51 Dose: Not Given Exam Vital signs: Vital Signs 06/05/18 19:54 06/05/18 20:26 06/05/18 20:31 Temperature 98 F Pulse Rate 77 Respiratory Rate 18 20 Blood Pressure 246/112 H Pulse Oximetry 99 98 98 06/05/18 20:34 06/05/18 22:10 06/05/18 22:31 Temperature Pulse Rate 78 Respiratory Rate 18 Blood Pressure 239/112 H 180/91 H 212/94 H Pulse Oximetry 06/05/18 23:12 06/05/18 23:54 06/06/18 00:17 Temperature Pulse Rate 75 79 78 Respiratory Rate 16 18 18 Blood Pressure 160/65 H 170/65 H 167/75 H Pulse Oximetry 98 98 06/06/18 01:48 06/06/18 01:50 06/06/18 02:00 Temperature 99.8 F H Pulse Rate 93 H 98 H 90 Respiratory Rate 33 H 29 H 26 H Blood Pressure 141/95 H 152/93 H Pulse Oximetry 97 97 06/06/18 02:11 06/06/18 03:00 06/06/18 03:15 Temperature Pulse Rate 92 H 98 H 97 H Respiratory Rate 41 H 24 Blood Pressure 170/79 H 177/79 H Pulse Oximetry 95 93 L 06/06/18 03:30 06/06/18 03:32 06/06/18 03:45 Temperature Pulse Rate 99 H 101 H 100 H Respiratory Rate 21 28 H 22 Blood Pressure 186/78 H 189/78 H 194/80 H Pulse Oximetry 92 L 94 L 92 L 06/06/18 04:00 06/06/18 04:11 06/06/18 04:15 Temperature 99.9 F H Pulse Rate 102 H 104 H 104 H Respiratory Rate 27 H 28 H Blood Pressure 181/76 H 180/75 H Pulse Oximetry 92 L 93 L 06/06/18 04:30 06/06/18 04:45 06/06/18 05:00 Temperature Pulse Rate 101 H 100 H 100 H Respiratory Rate 34 H 40 H 33 H Blood Pressure 182/78 H 178/77 H 175/74 H Pulse Oximetry 92 L 92 L 91 L 06/06/18 05:15 06/06/18 05:29 06/06/18 06:00 Temperature Pulse Rate 100 H 96 H Respiratory Rate 38 H 26 H Blood Pressure 169/72 H Pulse Oximetry 92 L 06/06/18 07:20 Temperature Pulse Rate Respiratory Rate Blood Pressure Pulse Oximetry 92 L Intake & Output 06/05/18 06/06/18 06/06/18 18:59 06:59 18:59 Intake Total 1500 / 1500 500 / 500 Output Total 225 / 225 Balance 1275 / 1275 500 / 500 Weight 100.2 kg Intake: IV 1500 / 1500 500 / 500 NS Inj 1,000 ML @ 100 mls/hr IV 1000 / 1000 .CONT .Q10H [facility] Rx#:[id number] Cardene Inj 25 MG In NS Inj 240 500 / 500 ML @ 5 MG/HR 50 mls/hr IV.CONT TITRATE PRN Rx#:[id number] Cardene Inj 50 MG In NS Inj 480 500 / 500 ML @ 5 MG/HR 50 mls/hr IV.CONT TITRATE PRN Rx#:[id number] Output: Urine 225 / 225 Other: Weight On Admission 99.8 kg - Constitutional no acute distress - Routine HEENT Exam Head: Present: normocephalic, atraumatic Eye: Present: EOMI, PERRL - Routine Neck Exam Absent: carotid bruit - Routine Cardiovascular Exam Present: RRR - Routine Neurological Exam Present: alert, oriented X3, CN II-XII intact, normal reflexes, moving all extremities, normal tone, vision grossly intact, normal speech. Absent: sensory deficit, motor deficit, pronator drift, nystagmus, facial asymmetry, tremors gait withheld, no drift, good bleaching supervisor strength, f-n-f intact, 1+ reflexes, toes downgoing Results - Labs CBC & Chem 7: 06/06/18 05:43 06/05/18 23:06 Labs: Laboratory Results - last 24 hr 06/05/18 06/05/18 06/05/18 20:18 20:18 20:18 WBC 9.2 RBC 3.89 L Hgb 11.0 L Hct 34.8 L MCV 89.5 MCH 28.3 MCHC 31.6 L RDW 14.3 Plt Count 200 MPV 9.2 Neut % (Auto) 85.2 H Lymph % (Auto) 9.5 [place] % (Auto) 5.1 Eos % (Auto) 0.0 Baso % (Auto) 0.2 Neut # (Auto) 7.9 H Lymph # (Auto) 0.9 L [place] # (Auto) 0.5 Eos # (Auto) 0.0 Baso # (Auto) 0.0 WBC Differential . Differential Comment Auto diff final PT 10.7 INR 1.1 APTT 22.2 L Sodium 132 L Potassium 4.0 Chloride 96 L Carbon Dioxide 23.6 Anion Gap 12 BUN 61 H Creatinine 3.75 H Estimated GFR 14 L POC Glucose Random Glucose 728 H* Calcium 9.1 Magnesium Total Creatine Kinase 155 CK-MB (CK-2) 2.0 Troponin I 0.02 Urine Color Urine Clarity Urine pH Ur Specific [place] Urine Protein Urine Glucose (UA) Urine Ketones Urine Occult Blood Urine Nitrate Urine Bilirubin Urine Urobilinogen Ur Leukocyte Esterase Urine RBC Urine WBC Ur Squamous Epith Cells Micro UA Comment Urine Culture Comments Nasal Screen MRSA (PCR) 06/05/18 06/05/18 06/05/18 21:30 21:30 23:06 WBC RBC Hgb Hct MCV MCH MCHC RDW Plt Count MPV Neut % (Auto) Lymph % (Auto) [place] % (Auto) Eos % (Auto) Baso % (Auto) Neut # (Auto) Lymph # (Auto) [place] # (Auto) Eos # (Auto) Baso # (Auto) WBC Differential Differential Comment PT INR APTT Sodium 139 Potassium 3.6 Chloride 103 Carbon Dioxide 24.3 Anion Gap 12 BUN 66 H Creatinine 3.57 H Estimated GFR 15 L POC Glucose Greater than 600 H* Random Glucose 673 H* 359 H D Calcium 9.6 Magnesium 2.3 Total Creatine Kinase CK-MB (CK-2) Troponin I Urine Color Urine Clarity Urine pH Ur Specific Trinity Urine Protein Urine Glucose (UA) Urine Ketones Urine Occult Blood Urine Nitrate Urine Bilirubin Urine Urobilinogen Ur Leukocyte Esterase Urine RBC Urine WBC Ur Squamous Epith Cells Micro UA Comment Urine Culture Comments Nasal Screen MRSA (PCR) 06/06/18 06/06/18 06/06/18 00:39 01:15 01:50 WBC RBC Hgb Hct MCV MCH MCHC RDW Plt Count MPV Neut % (Auto) Lymph % (Auto) [place] % (Auto) Eos % (Auto) Baso % (Auto) Neut # (Auto) Lymph # (Auto) [place] # (Auto) Eos # (Auto) Baso # (Auto) WBC Differential Differential Comment PT INR APTT Sodium Potassium Chloride Carbon Dioxide Anion Gap BUN Creatinine Estimated GFR POC Glucose 240 H Random Glucose Calcium Magnesium Total Creatine Kinase CK-MB (CK-2) Troponin I Urine Color Straw Urine Clarity Clear Urine pH 6.0 Ur Specific [place] 1.013 Urine Protein 100 H Urine Glucose (UA) 500 or greater Urine Ketones Negative Urine Occult Blood Small H Urine Nitrate Negative Urine Bilirubin Negative Urine Urobilinogen Less than 2 Ur Leukocyte Esterase Negative Urine RBC 1 Urine WBC Less than 1 Ur Squamous Epith Cells 1 Micro UA Comment Culture not ind Urine Culture Comments Culture not ind Nasal Screen MRSA (PCR) Not detected 06/06/18 06/06/18 06/06/18 03:00 05:43 05:43 WBC 11.3 H RBC 3.75 L Hgb 10.8 L Hct 32.6 L MCV 86.9 MCH 28.8 MCHC 33.1 RDW 14.0 Plt Count 186 MPV 8.5 Neut % (Auto) 81.6 H Lymph % (Auto) 11.9 [place] % (Auto) 6.2 Eos % (Auto) 0.0 Baso % (Auto) 0.3 Neut # (Auto) 9.2 H Lymph # (Auto) 1.3 [place] # (Auto) 0.7 Eos # (Auto) 0.0 Baso # (Auto) 0.0 WBC Differential . Differential Comment Auto diff final PT INR APTT Sodium Potassium Chloride Carbon Dioxide Anion Gap BUN Creatinine Estimated GFR POC Glucose 318 H Random Glucose Calcium Magnesium Total Creatine Kinase 140 CK-MB (CK-2) Troponin I 0.05 Urine Color Urine Clarity Urine pH Ur Specific [place] Urine Protein Urine Glucose (UA) Urine Ketones Urine Occult Blood Urine Nitrate Urine Bilirubin Urine Urobilinogen Ur Leukocyte Esterase Urine RBC Urine WBC Ur Squamous Epith Cells Micro UA Comment Urine Culture Comments Nasal Screen MRSA (PCR) 06/06/18 08:01 WBC RBC Hgb Hct MCV MCH MCHC RDW Plt Count MPV Neut % (Auto) Lymph % (Auto) [place] % (Auto) Eos % (Auto) Baso % (Auto) Neut # (Auto) Lymph # (Auto) [place] # (Auto) Eos # (Auto) Baso # (Auto) WBC Differential Differential Comment PT INR APTT Sodium Potassium Chloride Carbon Dioxide Anion Gap BUN Creatinine Estimated GFR POC Glucose 252 H Random Glucose Calcium Magnesium Total Creatine Kinase CK-MB (CK-2) Troponin I Urine Color Urine Clarity Urine pH Ur Specific [place] Urine Protein Urine Glucose (UA) Urine Ketones Urine Occult Blood Urine Nitrate Urine Bilirubin Urine Urobilinogen Ur Leukocyte Esterase Urine RBC Urine WBC Ur Squamous Epith Cells Micro UA Comment Urine Culture Comments Nasal Screen MRSA (PCR) - Imaging Impressions Chest X-Ray 06/05/18 20:13 CONCLUSION: Borderline cardiomegaly. Head CT 06/05/18 21:20 CONCLUSION: 1. 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 2. Nothing acute. Carotid Doppler Study 06/06/18 00:00 CONCLUSION: Scattered moderate calcific plaque without hemodynamically significant stenosis 8 mm apparent lymph node left lateral neck. Abhinav Jenkins MD FACR Review/Management - Review/Management Plan: mental status improved CT- no acute changes MRI/MRA pending CUS Scattered moderate calcific plaque without hemodynamically significant stenosis 8 mm apparent lymph node left lateral neck. ECHO pending will check EEG Lipid Panel Pending blood sugar control Daily Summary: note d/w seen d/w PA. w/u in progress pending mri/a echo eeg,flp cont plavix 75mg qd.
[2018-06-06 11:58] LABS: Troponin I 0.09 ng/mL (0.02-0.05)
--- NOTE | 2018-06-06 18:33 | ECG ---
Date Performed: 06/06/2018 Time Performed: 06:51:27 PTAGE: 73 years EKG: Sinus rhythm BORDERLINE LEFT AXIS DEVIATION LEFT VENTRICULAR HYPERTROPHY AND ST-T CHANGE ABNORMAL ECG PREVIOUS TRACING : 06/05/2018 20.12 Since the previous tracing, no significant change noted DOCTOR: Kalina Vaz Interpretating Date/Time 06/06/2018 18:31:49
--- NOTE | 2018-06-06 18:54 | ECG ---
Date Performed: 06/05/2018 Time Performed: 20:12:54 PTAGE: 73 years EKG: Sinus rhythm POSSIBLE LEFT ATRIAL ENLARGEMENT LEFT VENTRICULAR HYPERTROPHY AND ST-T CHANGE ABNORMAL ECG Since the PREVIOUS TRACING , no significant change noted DOCTOR: Kalina Vaz Interpretating Date/Time 06/06/2018 18:52:32
--- NOTE | 2018-06-06 21:13 | MR ---
EXAM DATE: 06/06/2018 9:07 PM EDT AGE/SEX: 73 years / Female INDICATIONS: CVA. Slurred speech CLINICAL DATA: This is the patient's initial encounter. Patient reports that signs and symptoms have been present for 1 day and indicates a pain score of 0/10. MEDICAL/SURGICAL HISTORY: Hypertension. Transient ischemic attack. DM, CAD . Heart cath 2007 COMPARISON: [facility], MRA HEAD W/O CONTRAST, 06/06/2018. . TECHNIQUE: Multiplanar, multisequence examination of the brain was performed without contrast. FINDINGS: Cerebrum: The ventricles are normal for age. No evidence of midline shift, mass lesion, hemorrhage or acute infarction. No extraaxial fluid collections are seen. The pituitary gland and suprasellar cistern are normal in configuration. White Matter: There are focal and confluent areas of increased signal seen throughout the cerebral w augustine matter. Posterior Fossa: The cerebellum and brainstem are intact. The 4th ventricle is midline. The cerebel lopontine angle is unremarkable. The cerebellar tonsils are normal in position. Diffusion Imaging: No focal areas of restricted diffusion are seen. No evidence of acute infarction . Extracranial: The visualized portions of the orbits and paranasal sinuses are unremarkable. CONCLUSION: 1. No acute abnormality is seen. 2. Focal and confluent areas of demyelination in the cerebral white matter. These are nonspecific. T hey could be secondary to small vessel ischemic change. Electronically signed by: Lyle Garcia MD 06/06/2018 9:12 PM EDT
--- NOTE | 2018-06-06 21:17 | MR ---
EXAM DATE: 06/06/2018 9:07 PM EDT AGE/SEX: 73 years / Female INDICATIONS: CVA. Bilat weakness, slurred speech CLINICAL DATA: This is the patient's initial encounter. Patient reports that signs and symptoms have been present for 1 day and indicates a pain score of 0/10. MEDICAL/SURGICAL HISTORY: Transient ischemic attack. Hypertension. Diabetes. CAD . Heart ca 2007 COMPARISON: [facility] [place], MR HEAD W/O CONTRAST, 06/06/2018. . TECHNIQUE: 3D [id number] MRA was performed. Source images, multiplanar STS MIP, and 3D volum e MIP reconstructions were reviewed. FINDINGS: The internal carotid arteries are patent bilaterally. The anterior and middle cerebral arteries are p atent. The posterior cerebral arteries arise from the internal carotid arteries. This is a normal edilberto iant. The vertebral and basilar arteries are normal. The distal flow appears fairly symmetric. No ane urysm is seen. CONCLUSION: Negative MRA. Electronically signed by: Lyle Garcia MD 06/06/2018 9:15 PM EDT
[2018-06-06] MEDS: Carvedilol 12.5 MG Tablet PO SCH (21:36)
[2018-06-06] MEDS: Insulin Detemir Inj 1,000 UNIT/10 ML Vial SQ SCH (21:37)
[2018-06-07] MEDS: Sod Chloride 0.9% Inj 1,000 ML IV.CONT SCH (03:12)
[2018-06-07] MEDS: Insulin NovoLOG Aspart Correctional Sugar Inj SQ SCH ×5 (03:12→20:50)
[2018-06-07] MEDS: Chlorhexidine Gluconate 2% 1 Pack (2 Cloths) TOPICAL SCH (04:44)
[2018-06-07 05:32] LABS: Calcium 8.4 mg/dL (8.5-10.1); Carbon Dioxide 21.2 meq/L (21.0-32.0); Potassium 3.5 meq/L (3.5-5.1)
[2018-06-07] MEDS: Carvedilol 12.5 MG Tablet PO SCH ×2 (08:15→20:48)
[2018-06-07] MEDS: Doxazosin 4 MG Tablet PO SCH (08:15)
[2018-06-07] MEDS: predniSONE 5 MG Tablet PO SCH (08:16)
[2018-06-07] MEDS: Furosemide 20 MG Tablet PO SCH (08:16)
[2018-06-07] MEDS: Isosorbide Mononitrate 20 MG Tablet PO SCH ×2 (08:16→20:48)
[2018-06-07] MEDS: Calcitriol 0.25 MCG Capsule PO SCH (08:17)
--- NOTE | 2018-06-07 08:28 | MG ---
cc: Charlie Limon MD EEG NUMBER: [id number]. INDICATIONS: Chest pain, transient ischemic attack. MEDICATIONS: 1. Insulin. 2. Prednisone. DESCRIPTION: A 9-10 Hz, 50 microvolt diffuse rhythm is seen. The recording overall is synchronous and symmetric. No hemisphere asymmetry is noted. Some 6 Hz diffuse slowing is seen with what appears to be sleep. Photic stimulation is performed without significant posterior driving. No hemisphere asymmetry is noted. No epileptiform or seizure activity is seen. IMPRESSION: Normal awake and sleep electroencephalogram. No evidence for a focal or diffuse abnormality. Charlie Limon MD DJM/DL , 07:53 AM , 07:57 AM
--- NOTE | 2018-06-07 10:58 | P.PNIM ---
Subjective Interval history: Feels better. Tolerating diet. Feels like she is back to her normal self. No headaches. No weakness or numbness. No difficulty with speech or swallowing. Physical Exam Vital signs: Vital Signs 06/06/18 12:00 06/06/18 12:20 06/06/18 14:00 Temperature 98.3 F Pulse Rate 77 79 Respiratory Rate 22 Blood Pressure 147/69 H Pulse Oximetry 98 95 06/06/18 16:00 06/06/18 17:30 06/06/18 18:00 Temperature 98.4 F Pulse Rate 81 85 87 Respiratory Rate 23 26 H 42 H Blood Pressure 150/65 H 154/67 H Pulse Oximetry 97 96 97 06/06/18 18:03 06/06/18 18:11 06/06/18 18:21 Temperature Pulse Rate 87 86 91 H Respiratory Rate 30 H 22 36 H Blood Pressure 170/74 H 151/125 H 191/74 H Pulse Oximetry 95 91 L 94 L 06/06/18 18:30 06/06/18 18:41 06/06/18 19:00 Temperature Pulse Rate 87 85 86 Respiratory Rate 36 H 31 H 26 H Blood Pressure 178/71 H 198/77 H 132/61 Pulse Oximetry 94 L 94 L 94 L 06/06/18 19:10 06/06/18 19:20 06/06/18 19:30 Temperature Pulse Rate 85 87 87 Respiratory Rate 18 21 32 H Blood Pressure 128/65 144/68 H 151/70 H Pulse Oximetry 94 L 94 L 95 06/06/18 19:40 06/06/18 19:50 06/06/18 20:00 Temperature 99.7 F H Pulse Rate 86 88 92 H Respiratory Rate 24 21 32 H Blood Pressure 141/65 H 137/69 134/62 Pulse Oximetry 95 94 L 96 06/06/18 20:10 06/06/18 20:16 06/06/18 21:00 Temperature Pulse Rate 88 86 83 Respiratory Rate 35 H 20 22 Blood Pressure 133/57 L 145/66 H Pulse Oximetry 98 96 97 06/06/18 21:01 06/06/18 21:06 06/06/18 21:18 Temperature Pulse Rate 82 88 86 Respiratory Rate 27 H 17 28 H Blood Pressure 145/66 H 139/63 122/65 Pulse Oximetry 98 96 98 06/06/18 21:30 06/06/18 21:45 06/06/18 22:00 Temperature Pulse Rate 85 132 H 80 Respiratory Rate 26 H 33 H 22 Blood Pressure 164/71 H 169/78 H 138/65 Pulse Oximetry 96 95 100 06/06/18 22:16 06/06/18 22:30 06/06/18 22:45 Temperature Pulse Rate 65 58 L 61 Respiratory Rate 22 24 18 Blood Pressure 122/60 111/54 L 119/57 L Pulse Oximetry 100 100 95 06/06/18 23:00 06/06/18 23:15 06/06/18 23:30 Temperature Pulse Rate 62 57 L 62 Respiratory Rate 25 H 25 H 27 H Blood Pressure 115/55 L 109/53 L 122/55 L Pulse Oximetry 97 96 97 06/06/18 23:45 06/07/18 00:00 06/07/18 00:15 Temperature 99.6 F Pulse Rate 60 61 64 Respiratory Rate 23 15 21 Blood Pressure 122/56 L 116/58 L 122/56 L Pulse Oximetry 98 97 95 06/07/18 00:30 06/07/18 00:45 06/07/18 01:00 Temperature Pulse Rate 63 65 64 Respiratory Rate 22 25 H 18 Blood Pressure 123/58 L 120/56 L 123/58 L Pulse Oximetry 95 94 L 96 06/07/18 01:15 06/07/18 01:30 06/07/18 01:45 Temperature Pulse Rate 56 L 57 L 69 Respiratory Rate 13 8 L 27 H Blood Pressure 120/59 L 116/56 L 118/55 L Pulse Oximetry 95 94 L 95 06/07/18 02:00 06/07/18 02:15 06/07/18 02:30 Temperature Pulse Rate 60 63 62 Respiratory Rate 23 24 26 H Blood Pressure 127/60 129/61 133/63 Pulse Oximetry 93 L 92 L 90 L 06/07/18 02:45 06/07/18 03:00 06/07/18 03:15 Temperature Pulse Rate 62 60 60 Respiratory Rate 23 28 H 32 H Blood Pressure 134/63 130/57 L 128/61 Pulse Oximetry 95 96 94 L 06/07/18 03:30 06/07/18 03:45 06/07/18 04:00 Temperature 99.4 F Pulse Rate 60 60 61 Respiratory Rate 22 17 23 Blood Pressure 129/59 L 130/61 127/58 L Pulse Oximetry 92 L 94 L 97 06/07/18 04:15 06/07/18 04:30 06/07/18 04:45 Temperature Pulse Rate 63 68 73 Respiratory Rate 44 H 22 26 H Blood Pressure 130/61 138/64 137/68 Pulse Oximetry 95 98 98 06/07/18 05:00 06/07/18 05:15 06/07/18 05:30 Temperature Pulse Rate 68 66 66 Respiratory Rate 24 25 H 26 H Blood Pressure 136/63 141/67 H 141/67 H Pulse Oximetry 95 96 95 06/07/18 05:45 06/07/18 06:00 06/07/18 06:15 Temperature Pulse Rate 64 65 63 Respiratory Rate 30 H 18 22 Blood Pressure 137/66 131/60 140/63 Pulse Oximetry 95 96 98 06/07/18 06:30 06/07/18 06:45 06/07/18 07:00 Temperature Pulse Rate 66 66 68 Respiratory Rate 21 24 24 Blood Pressure 141/65 H 145/67 H 143/69 H Pulse Oximetry 100 99 100 06/07/18 07:15 06/07/18 07:30 06/07/18 07:45 Temperature Pulse Rate 67 68 68 Respiratory Rate 23 24 20 Blood Pressure 147/70 H 144/66 H 147/69 H Pulse Oximetry 100 100 99 06/07/18 08:00 06/07/18 08:15 06/07/18 08:45 Temperature 98.4 F Pulse Rate 71 70 77 Respiratory Rate 22 24 29 H Blood Pressure 155/74 H 149/66 H 139/75 Pulse Oximetry 96 96 93 L 06/07/18 09:00 06/07/18 09:15 06/07/18 10:00 Temperature Pulse Rate 70 69 61 Respiratory Rate 21 27 H Blood Pressure 136/68 159/67 H Pulse Oximetry 93 L 95 Intake & Output 06/06/18 06/07/18 06/07/18 18:59 06:59 18:59 Intake Total 1800 / 1800 1979 / 1979 863 / 863 Output Total 500 / 500 250 / 250 Balance 1300 / 1300 1730 / 1730 863 / 863 Weight 100.3 kg Intake: IV 1000 / 1000 1500 / 1500 863 / 863 NS Inj 1,000 ML @ 100 mls/hr IV 1000 / 1000 863 / 863 .CONT .Q10H DERRICK Rx#:[id number] Cardene Inj 50 MG In NS Inj 480 1000 / 1000 500 / 500 ML @ 5 MG/HR 50 mls/hr IV.CONT TITRATE PRN Rx#:[id number] Oral 800 / 800 480 / 480 Output: Urine 500 / 500 250 / 250 Other: # Voids 1 Date of Last Bowel Movement 06/03/18 06/03/18 Narrative: GENERAL: This is a well-nourished, well-developed patient, in no apparent distress. CARDIOVASCULAR: Regular rate and rhythm without murmurs, gallops, or rubs. RESPIRATORY: Clear to auscultation. Breath sounds equal bilaterally. No wheezes , rales, or rhonchi. GASTROINTESTINAL: Abdomen soft, non-tender, nondistended. Normal active bowel sounds MUSCULOSKELETAL: Extremities without clubbing, cyanosis, or edema. NEURO: Alert & Oriented x4 to person, place, time, situation. Moves all ext x4 Results - Labs CBC & Chem 7: 06/06/18 05:43 06/07/18 04:31 Laboratory Results - last 24 hr 06/06/18 06/06/18 06/06/18 10:42 12:29 18:11 Sodium Potassium Chloride Carbon Dioxide Anion Gap BUN Creatinine Estimated GFR POC Glucose 155 H 266 H Random Glucose Calcium Total Creatine Kinase 142 Troponin I 0.09 H 06/06/18 06/07/18 06/07/18 19:48 02:36 04:31 Sodium 144 Potassium 3.5 Chloride 112 H D Carbon Dioxide 21.2 Anion Gap 11 BUN 55 H Creatinine 3.29 H Estimated GFR 17 L POC Glucose 347 H 121 H Random Glucose 102 D Calcium 8.4 L D Total Creatine Kinase Troponin I 06/07/18 07:52 Sodium Potassium Chloride Carbon Dioxide Anion Gap BUN Creatinine Estimated GFR POC Glucose 139 H Random Glucose Calcium Total Creatine Kinase Troponin I - Imaging Impressions Head MRI 06/06/18 00:33 CONCLUSION: Head MRA 06/06/18 00:33 CONCLUSION: Assessment and Plan - Plan 73-year-old female presents with chest pain and hypertensive emergency of blood pressures 246/112 Assessment/plan: 1. Chest pain likely due to hypertensive emergencynow resolved Patient with left-sided chest pain/pressure that radiated to the left jaw EKG shows normal sinus rhythm without ST segment elevations or depressions Initial troponin negative Serial cardiac enzymes are negative. 2. Suspect hypertensive encephalopathy with hypertensive emergency - Mental status now back at baseline and much improved after control of blood pressure. Currently weaned off nifedipine drip and started p.o. Procardia XL 60 mg p.o. daily 3. Altered mental status/lower extremity weakness/slurred speech rule out underlying TIA CVA Suspect altered mental status may be due to hypertensive encephalopathy History of TIA Head CT negative for acute process MRI/MRA negative, carotid ultrasound negative Neurology consulted, appreciate recommendations Continue Plavix 3. Diabetes mellitus type II uncontrolled/hyperglycemia Status post 16 units IV insulin Sliding-scale insulin Monitor blood glucose Resume home diet and start basal insulin Levemir 4. Acute on chronic kidney disease stage IV Creatinine 3.75, baseline 2.9, today's creatinine 3.25 IV fluid hydration Monitor renal function Avoid nephrotoxic. 5. Hypertension/hyperlipidemia/CAD Continue home medications with addition of Procardia XL replacing Norvasc 6. DVT prophylaxisPlavix, subcu heparin Transfer out of the intensive care unit Discharge Planning: Possible discharge to home in a.m. if blood pressure better controlled overnight.
--- NOTE | 2018-06-07 17:46 | ECHRPT ---
Indication: CONCLUSIONS The left ventricular systolic function is hyperdynamic with an estimated ejection fraction in the ra nge of 65- 70%. Normal left ventricular size. Mild concentric left ventricular hypertrophy. No regional wall motion abnormalities are present. The left atrial size is [id number] dilated. The atrial septum bows to the right. Trace mitral valve regurgitation. Calcification of the non-coronary cusp. There is trace tricuspid valve regurgitation. The estimated pulmonary arterial pressure is 32 mmHg. Trivial pulmonary valve regurgitation. There is a trace pericardial effusion present. BP: / HR: Rhythm: Sinus Technical Quality:Good FINDINGS LEFT VENTRICLE The left ventricular systolic function is hyperdynamic with an estimated ejection fraction in the ra nge of 65- 70%. Normal left ventricular size. Mild concentric left ventricular hypertrophy. No regional wall motion abnormalities are present. RIGHT VENTRICLE Normal right ventricular size and systolic function. LEFT ATRIUM The left atrial size is klehihep-oo-tyyidoxy dilated. RIGHT ATRIUM The right atrial size is normal. ATRIAL SEPTUM The atrial septum bows to the right. AORTA The aortic root and proximal ascending aorta are normal in size on limited imaging. MITRAL VALVE Structurally normal mitral valve. Trace mitral valve regurgitation. AORTIC VALVE Trileaflet aortic valve. Calcification of the non-coronary cusp. TRICUSPID VALVE Structurally normal tricuspid valve. There is trace tricuspid valve regurgitation. The estimated pulmonary arterial pressure is 32 mmHg. PULMONARY VALVE Trivial pulmonary valve regurgitation. VESSELS The inferior vena cava is normal in size. PERICARDIUM There is a trace pericardial effusion present. Norbert Mota MD, FACC, [facility] (Electronically Signed) Final Date:07 June 2018 17:45
[2018-06-07] MEDS: Insulin Detemir Inj 1,000 UNIT/10 ML Vial SQ SCH (20:50)
[2018-06-08] MEDS: Insulin NovoLOG Aspart Correctional Sugar Inj SQ SCH ×3 (03:38→13:25)
[2018-06-08] MEDS: Chlorhexidine Gluconate 2% 1 Pack (2 Cloths) TOPICAL SCH (05:11)
[2018-06-08 08:24] LABS: Calcium 8.8 mg/dL (8.5-10.1); Carbon Dioxide 22.1 meq/L (21.0-32.0); Potassium 3.6 meq/L (3.5-5.1)
--- NOTE | 2018-06-08 08:46 | P.DCO ---
- Home Health Nursing Order: Medical education, Diabetic education, Nursing assessment with vital signs - Certification I have seen patient Marco Patel on 06/08/18. My clinical findings support the need for the requested home health care services because: Deconditioned with increased weakness I certify that my clinical findings support that this patient is homebound because: Unsafe to leave home unassisted
--- NOTE | 2018-06-08 09:06 | P.DS ---
Date of admission: 06/06/18 00:15 Primary care physician: Denise Rizvi MD Anticipated date of discharge: 06/08/18 Brief History from admission: 73-year-old female with a past medical history significant for coronary artery disease, chronic kidney disease, diabetes mellitus, hypertension, hyperlipidemia and history of previous TIA presents to the emergency department for the evaluation of chest pain. History is obtained from emergency department documentation. Patient was brought to the emergency department by her daughter for the evaluation of chest pain and pressure on the left side which with radiation into the left neck. The patient also had bilateral lower extremity weakness that had resolved by the time she arrived to the emergency department. Her daughter states that she had some slurred speech and a fixed stare at the same time of her lower extremity weakness that has since resolved. On arrival to the emergency department the patient's blood pressure was found to be 246/1 1 2. She denied headache at that time. Was given nitro. Was given labetalol 2 without improvement in her blood pressure. Was then started on a nicardipine drip with subsequent response. The patient had a CT scan and became nauseated at which time she was given Reglan. She reported restless legs and then became altered and went to the center of the floor of her room and urinated. This was witnessed by her daughter and emergency department staff. The patient was then given Benadryl and is now sleeping quietly. Additionally, the patient had a blood glucose in the 700s on her arrival to the emergency department. She is status post 16 units of IV insulin with subsequent improvement in her blood glucose. The patient will open her eyes to voice and has no complaints at this time. She rapidly falls back asleep. DS: Diagnosis - Discharge Diagnosis (1) Hypertensive encephalopathy Status: Resolved Diagnosis: Principal (2) Hypertensive crisis Status: Resolved Diagnosis: Principal (3) Hyperglycemia due to type 2 diabetes mellitus Status: Chronic Diagnosis: Secondary (4) CKD (chronic kidney disease) stage 4, GFR 15-29 ml/min Status: Chronic Diagnosis: Secondary (5) Acute on chronic kidney failure Status: Resolved Diagnosis: Secondary DS: Summary Hospital Course: These are the medical issues addressed during this hospitalization: 73-year-old female presents with chest pain and hypertensive emergency of blood pressures 246/112 Assessment/plan: 1. Chest pain likely due to hypertensive emergencynow resolved Patient with left-sided chest pain/pressure that radiated to the left jaw EKG shows normal sinus rhythm without ST segment elevations or depressions Initial troponin negative Serial cardiac enzymes are negative. 2. Suspect hypertensive encephalopathy with hypertensive emergency - Mental status now back at baseline and much improved after control of blood pressure. Currently weaned off nifedipine drip and started p.o. Procardia XL 60 mg p.o. daily, will increase dosage to Procardia XL 90 mg p.o. daily for better control and new prescription prescribed. Patient will be instructed to stop her amlodipine at home. 3. Altered mental status/lower extremity weakness/slurred speech rule out underlying TIA CVA, TIA and CVA has been ruled out likely this is due to hypertensive emergency and encephalopathy. Suspect altered mental status may be due to hypertensive encephalopathy History of TIA Head CT negative for acute process MRI/MRA negative, carotid ultrasound negative Neurology consulted, appreciate recommendations Continue Plavix 3. Diabetes mellitus type II uncontrolled/hyperglycemia Status post 16 units IV insulin Sliding-scale insulin Monitor blood glucose Resume home diet and start basal insulin Levemir 4. Acute on chronic kidney disease stage IV Creatinine 3.75, baseline 2.9, today's creatinine 3.58 IV fluid hydration Monitor renal function Avoid nephrotoxins 5. Hypertension/hyperlipidemia/CAD Continue home medications with addition of Procardia XL replacing Norvasc 6. DVT prophylaxisPlavix, subcu heparin - Time Spent with Patient Total time spent providing and/or coordinating discharge services: Less than 30 minutes - Quality: VTE Deep Vein Thrombosis/Pulmonary Embolism Present on Admission: No Exam Vital signs: Vital Signs 06/07/18 09:15 06/07/18 10:00 06/07/18 11:00 Temperature Pulse Rate 69 61 56 L Respiratory Rate 27 H 19 30 H Blood Pressure 159/67 H 142/65 H 151/67 H Pulse Oximetry 95 96 96 06/07/18 12:00 06/07/18 16:00 06/07/18 16:01 Temperature 98.2 F 98.4 F Pulse Rate 66 67 93 H Respiratory Rate 22 18 Blood Pressure 133/62 152/67 H Pulse Oximetry 93 L 95 06/07/18 20:00 06/07/18 23:59 06/08/18 00:00 Temperature 98.5 F 98.5 F Pulse Rate 72 75 75 Respiratory Rate 17 17 Blood Pressure 178/77 H 165/72 H Pulse Oximetry 96 97 06/08/18 03:55 06/08/18 04:00 Temperature 97.9 F Pulse Rate 64 67 Respiratory Rate 17 Blood Pressure 164/72 H Pulse Oximetry 96 Intake & Output 06/07/18 06/08/18 06/08/18 18:59 06:59 18:59 Intake Total 1113 / 1113 480 / 480 Output Total 350 / 350 300 / 300 Balance 763 / 763 180 / 180 Weight 106.8 kg 107.8 kg Intake: IV 863 / 863 NS Inj 1,000 ML @ 100 mls/hr IV 863 / 863 .CONT .Q10H DERRICK Rx#:[id number] Oral 250 / 250 480 / 480 Output: Urine 350 / 350 300 / 300 Other: # Voids 2 Date of Last Bowel Movement 06/04/18 Narrative: GENERAL: This is a well-nourished, well-developed patient, in no apparent distress. CARDIOVASCULAR: Regular rate and rhythm without murmurs, gallops, or rubs. RESPIRATORY: Clear to auscultation. Breath sounds equal bilaterally. No wheezes , rales, or rhonchi. GASTROINTESTINAL: Abdomen soft, non-tender, nondistended. Normal active bowel sounds MUSCULOSKELETAL: Extremities without clubbing, cyanosis, or edema. NEURO: Alert & Oriented x4 to person, place, time, situation. Moves all ext x4 Results Procedures completed during hospitalization: none Labs on day of discharge: Labs from last 24 hours 06/08/18 06/08/18 06/08/18 07:36 07:33 03:33 Sodium 142 Potassium 3.6 Chloride 111 H Carbon Dioxide 22.1 Anion Gap 9 BUN 60 H Creatinine 3.58 H Estimated GFR 15 L POC Glucose 182 H 186 H Random Glucose 167 H Calcium 8.8 06/07/18 06/07/18 06/07/18 20:27 16:59 11:41 Sodium Potassium Chloride Carbon Dioxide Anion Gap BUN Creatinine Estimated GFR POC Glucose 332 H 301 H 218 H Random Glucose Calcium - Impressions ITS Impressions Chest X-Ray 06/05/18 20:13 CONCLUSION: Borderline cardiomegaly. Head CT 06/05/18 21:20 CONCLUSION: 1. 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 2. Nothing acute. Carotid Doppler Study 06/06/18 00:00 CONCLUSION: Scattered moderate calcific plaque without hemodynamically significant stenosis 8 mm apparent lymph node left lateral neck. Abhinav Jenkins MD FACR Head MRI 06/06/18 00:33 CONCLUSION: Head MRA 06/06/18 00:33 CONCLUSION: Discharge Plan - Discharge Disposition Patient Disposition: W/Home Health Service - Discharge Condition Condition: Good - Discharge Order Discharge Orders: Discharge Order (Routine); Ordered 06/08/18 Ordered By: Va Acuna - Discharge Details Anticipated Discharge Date: 06/08/18 - Physicians Team Primary Care Provider: Denise Rizvi Attending Provider: Va Acuna Other Providers: Teena Moran MD ; Jhonatan Ochoa MD ; [employer], Insurance
[2018-06-08] MEDS: Furosemide 20 MG Tablet PO SCH (09:59)
[2018-06-08] MEDS: Doxazosin 4 MG Tablet PO SCH (09:59)
[2018-06-08] MEDS: Carvedilol 12.5 MG Tablet PO SCH (09:59)
[2018-06-08] MEDS: predniSONE 5 MG Tablet PO SCH (09:59)
[2018-06-08] MEDS: Isosorbide Mononitrate 20 MG Tablet PO SCH (10:00)
[2018-06-08] MEDS: Calcitriol 0.25 MCG Capsule PO SCH (10:00)
[2018-06-08] MEDS ORDERED: Insulin Detemir Inj 1,000 UNIT/10 ML Vial SQ SCH (21:00)
== END 2018-06-08 15:33 | disposition home health service (06) ==
LOC: NEPC 19:35 → NEDA 06-06 00:15 → HIMC 06-06 01:40 → N04 06-07 13:24
PROVIDERS: ADMIT Family Medicine; ATTEND Family Medicine